=== PATIENT | male | born 1970 | race Caucasian/White ===

== ENCOUNTER 2016-11-07 08:44 | Emergency (ER) | payer OTHER ==
[~2016-11-07] VITALS: Ht 185.4 cm; Wt 104.0 kg
[~2016-11-07 08:44] MED LIST: ALBU0.08 NEB; PRED20 PO; SYMB80AE INH
[2016-11-07 08:53] VITALS: BP 119/86; PULSE 112; RESP 22; TEMP 97.7; O2SAT 91
[2016-11-07] MEDS ORDERED: ADVA100A INH (08:57)
[2016-11-07] MEDS ORDERED: SODIUM CHLORIDE 0.9% FLUSH 5 ML FLUSH IVF PRN (09:00)
[2016-11-07] MEDS ORDERED: methylPREDNISolone SOD SUCC 125 MG/2 ML VIAL IVP ONE (09:00)
[2016-11-07 09:09] VITALS: O2SAT 94
[2016-11-07 09:12] VITALS: O2SAT 92
[2016-11-07] MEDS: RESP: ALBUTEROL 2.5 MG/IPRATROPIUM 0.5 MG NEB (SCH) INH (09:13)
--- NOTE | 2016-11-07 09:14 | PD ---
HPI Chief Complaint: Respiratory Distress Time Seen by Provider: 08:53 Travel History International Travel<30 days: No Contact w/Intl Traveler<30days: No Traveled to known affect area: No History of Present Illness HPI This 46-year-old male is complaining of shortness of breath. He says he been short of breath for the past week and is getting progressively worse. He's been coughing up some yellow brownish phlegm. He has not had fever. He has a history of COPD. He says he has not had a cigarette for the past week. 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 He has been on albuterol and Atrovent recently. He has been on steroids in the past but is not on them currently. He has his first appointment with a graphics production specialist on Tuesday Past Medical History Hx Anticoagulant Therapy: Yes Anxiety: Yes Heart Rhythm Problems: Yes Cancer: No Cardiovascular Problems: Yes (CHRONIC TACHYCARDIA) Congestive Heart Failure: No COPD: Yes Coronary Artery Disease: No Diabetes: No Diminished Hearing: No Diverticulitis: Yes Deep Vein Thrombosis: Yes (PE) Endocrine: No Gastrointestinal Disorders: Yes GERD: Yes Genitourinary: No Implanted Vascular Access Dvce: Yes (FILTER) Musculoskeletal: No Neurologic: No Psychiatric: No Respiratory: Yes Past Surgical History Abdominal Surgery: Yes (LIVER BIOPSY, COLOSTOMY) Body Medical Devices: SUAD FILTER Other Surgery: Yes Social History Alcohol Use: Yes (2-3 BEERS NIGHTLY) Tobacco Use: Yes (1/2PPD) Substance Use: No Allergies-Medications (Allergen,Severity, Reaction): Coded Allergies: No Known Allergies (Unverified , 10/28/16) Reported Meds & Prescriptions Reported Meds & Active Scripts Active Albuterol Neb (Albuterol Sulfate) 2.5 Mg/3 Ml Neb 2.5 Mg NEB Q4HR NEB While awake Reported Advair Diskus Inh (Fluticasone-Salmeterol Inh) 100-50 Mcg/Blist Aer 1 Puff INH BID Rinse mouth after use. Review of Systems General / Constitutional: No: Fever, Chills Eyes: No: Diploplia, Blurred Vision HENT: No: Headaches, Vertigo Cardiovascular: No: Chest Pain or Discomfort Respiratory: Positive: Cough, Shortness of Breath, Wheezing, No: Hemoptysis Gastrointestinal: No: Vomiting, Diarrhea Genitourinary: No: Urgency, Frequency Musculoskeletal: No: Myalgias, Arthralgias Skin: No Rash, No Itching Hematologic/Lymphatic: No: Easy Bruising Physical Exam Narrative GENERAL: Well-developed male. He is dyspneic on arrival SKIN: Warm and dry. HEAD: Atraumatic. Normocephalic. EYES: Pupils equal and round. No scleral icterus. No injection or drainage. ENT: No nasal bleeding or discharge. Mucous membranes pink and moist. NECK: Trachea midline. No JVD. CARDIOVASCULAR: Regular rate and rhythm. No murmur appreciated. RESPIRATORY: accessory muscle use. Bilateral expiratory wheezes are present. Breath sounds equal bilaterally. GASTROINTESTINAL: Abdomen soft, non-tender, nondistended. Hepatic and splenic margins not palpable. MUSCULOSKELETAL: No obvious deformities. No clubbing. No cyanosis. No edema. NEUROLOGICAL: Awake and alert. No obvious cranial nerve deficits. Motor grossly within normal limits. Normal speech. PSYCHIATRIC: Appropriate mood and affect; insight and judgment normal. Data Data Last Documented VS Vital Signs Date Time Temp Pulse Resp B/P Pulse Ox O2 Delivery O2 Flow Rate FiO2 11/07/16 09:45 97.9 112 18 119/79 96 Nasal Cannula 2 Orders Complete Blood Count With Diff (11/07/16 08:53) Basic Metabolic Panel (Bmp) (11/07/16 08:53) Troponin I (11/07/16 08:53) Influenzae A/B Antigen (11/07/16 08:53) Iv Access Insert/Monitor (11/07/16 08:53) Electrocardiogram (11/07/16 08:53) Ecg Monitoring (11/07/16 08:53) Oximetry (11/07/16 08:53) Oxygen Administration (11/07/16 08:53) Chest, Single Ap (11/07/16 08:53) Sodium Chloride 0.9% Flush (Ns Flush) (11/07/16 09:00) Methylprednisolone So Succ Inj (Solumedr (11/07/16 09:00) Albuterol-Ipratropium Neb (Duoneb Neb) (11/07/16 09:00) Labs Laboratory Tests Test 11/07/16 09:03 White Blood Count 15.3 TH/MM3 Red Blood Count 4.85 MIL/MM3 Hemoglobin 14.2 GM/DL Hematocrit 42.6 % Mean Corpuscular Volume 87.8 FL Mean Corpuscular Hemoglobin 29.3 PG Mean Corpuscular Hemoglobin 33.3 % Concent Red Cell Distribution Width 15.2 % Platelet Count 450 TH/MM3 Mean Platelet Volume 7.3 FL Neutrophils (%) (Auto) 65.5 % Lymphocytes (%) (Auto) 17.3 % Monocytes (%) (Auto) 6.9 % Eosinophils (%) (Auto) 6.2 % Basophils (%) (Auto) 4.1 % Neutrophils # (Auto) 10.1 TH/MM3 Lymphocytes # (Auto) 2.6 TH/MM3 Monocytes # (Auto) 1.1 TH/MM3 Eosinophils # (Auto) 0.9 TH/MM3 Basophils # (Auto) 0.6 TH/MM3 CBC Comment DIFF FINAL Differential Comment Sodium Level 143 MEQ/L Potassium Level 4.0 MEQ/L Chloride Level 108 MEQ/L Carbon Dioxide Level 25.0 MEQ/L Anion Gap 10 MEQ/L Blood Urea Nitrogen 16 MG/DL Creatinine 0.89 MG/DL Estimat Glomerular Filtration 91 ML/MIN Rate Random Glucose 87 MG/DL Calcium Level 8.6 MG/DL Troponin I LESS THAN 0.02 NG/ML [facility] Medical Decision Making Medical Screen Exam Complete: Yes Emergency Medical Condition: Yes Medical Record Reviewed: Yes Differential Diagnosis Differential includes pneumonia, COPD exacerbation, URI Narrative Course Chest x-rays been read as negative. He has been given Solu-Medrol and repeated nebulizer treatments. He reports feeling better. Repeat examination shows improvement in his wheezing. He appears stable for discharge. He'll be released with prescriptions for prednisone, albuterol and amoxicillin Diagnosis Primary Impression: COPD with acute exacerbation Scripts Albuterol Neb 2.5 Mg/3 Ml Neb2.5 Mg NEB Q4HR NEB PRN (SHORTNESS OF BREATH) #60 NEBULE Ref 0 Prov:Aki Finley MD 11/07/16 Amoxicillin 500 Mg Agu022 Mg PO TID #21 TAB Ref 0 Prov:Aki Finley MD 11/07/16 Prednisone 20 Mg Tab60 Mg PO DAILY 7 Days Ref 0 40 MG twice a day x 3 days, then 20 MG daily x 3 days, then 10 MG daily x 3 days Prov:Aki Finley MD 11/07/16 Disposition: 01 DISCHARGE HOME Condition: Stable Aki Finley MD Nov 07, 2016 09:14
[2016-11-07 09:16] LABS: AUTOMATED NEUTROPHIL # 10.1 TH/MM3 (1.8-7.7); BASOPHIL # 0.6 TH/MM3 (0-0.2); BASOPHIL % 4.1 % (0.0-2.0); EOSINOPHIL # 0.9 TH/MM3 (0-0.4); EOSINOPHIL % 6.2 % (0.0-4.0); HEMATOCRIT 42.6 % (39.0-51.0); HEMO FLAGS DIFF FINAL; LYMPH % 17.3 % (9.0-44.0); LYMPHOCYTE # 2.6 TH/MM3 (1.0-4.8); MEAN CELL VOLUME 87.8 FL (80.0-100.0); MEAN CORPUSCULAR HEMOGLOBIN 29.3 PG (27.0-34.0); MEAN CORPUSCULAR HGB CONC 33.3 % (32.0-36.0); MONO % 6.9 % (0.0-8.0); NEUT % 65.5 % (16.0-70.0); PLATELET COUNT 450 TH/MM3 (150-450); RED BLOOD COUNT 4.85 MIL/MM3 (4.50-5.90); RED CELL DISTRIBUTION WIDTH 15.2 % (11.6-17.2); WHITE BLOOD COUNT 15.3 TH/MM3 (4.0-11.0)
[2016-11-07 09:45] VITALS: BP 119/79; PULSE 112; RESP 18; TEMP 97.9; O2SAT 96
[2016-11-07 09:48] LABS: GLOMERULAR FILTRATION RATE 91 ML/MIN (>89)
[2016-11-07 09:54] LABS: ANION GAP 10 MEQ/L (5-15); CHLORIDE 108 MEQ/L (98-107); SODIUM (NA) 143 MEQ/L (136-145)
[2016-11-07 09:58] LABS: BLOOD UREA NITROGEN 16 MG/DL (7-18)
--- NOTE | 2016-11-07 10:03 | RADHPO ---
EXAM DATE/TIME: 11/07/2016 09:37 [facility] COMPARISON: CHEST SINGLE AP, September 30, 2016, 12:15. INDICATIONS : Short of breath. MEDICAL HISTORY : Chronic obstructive pulmonary disease. Deep venous thrombosis. SURGICAL HISTORY : IVC filter placement. ENCOUNTER: Subsequent ACUITY: 1 day PAIN SCORE: 1/10 LOCATION: Bilateral chest FINDINGS: A single view of the chest demonstrates the lungs to be symmetrically aerated without evidence of mas s, infiltrate or effusion. The cardiomediastinal contours are unremarkable. Osseous structures are intact. CONCLUSION: No acute disease. Babak Cain MD on November 07, 2016 at 10:02 Board Certified Radiologist. This report was verified electronically.
[2016-11-07] MEDS ORDERED: ALBU0.08 NEB (10:11)
[2016-11-07] MEDS ORDERED: PRED20 PO (10:11)
[2016-11-07] MEDS ORDERED: AMOX500T PO (10:11)
--- NOTE | 2016-11-08 18:34 | EKG ---
Date Performed: 11/07/2016 Time Performed: 08:47:00 PTAGE: 46 years EKG: Sinus tachycardia Septal T wave changes are nonspecific Since previous tracing, no signific ant change noted Borderline ECG PREVIOUS TRACING : 10/14/2016 22.37 DOCTOR: Kelly Mills Interpretating Date/Time 11/08/2016 18:33:32
== END 2016-11-07 10:53 | disposition home or self-care (01) ==
LOC: PHED 08:44
DX: J44.1 Chronic obstructive pulmonary disease with (acute) exacerbation (principal); R00.0 Tachycardia, unspecified; Z86.711 Personal history of pulmonary embolism; F17.210 Nicotine dependence, cigarettes, uncomplicated
CPT/HCPCS: 71010; 80048; 84484; 85025; 87804; 93005; 94640; 94664; 96374; 99285; J2930

== ENCOUNTER 2017-01-03 06:22 | Inpatient (IN) | payer OTHER ==
[2017-01-03] VITALS (9 sets, daily range): BP systolic 115–142; BP diastolic 74–90; PULSE 77–122; RESP 16–26; TEMP 97.7–97.9; O2SAT 88–99
[~2017-01-03] VITALS: Ht 185.4 cm; Wt 106.9 kg
[~2017-01-03 06:22] MED LIST changes: +ADVA100A INH; +AMOX500T PO; -SYMB80AE INH
[2017-01-03] MEDS ORDERED: FLUT1INH INH (06:39)
[2017-01-03] MEDS ORDERED: TIOT12.9 INH ×2 (06:39)
--- NOTE | 2017-01-03 06:41 | PD ---
HPI Chief Complaint: Respiratory Symptoms Time Seen by Provider: 06:34 Travel History International Travel<30 days: No Contact w/Intl Traveler<30days: No Traveled to known affect area: No History of Present Illness HPI 46-year-old male with history of COPD here for evaluation of shortness of breath. Patient started having shortest of breath yesterday, worse this morning. Shortest of breath is at rest, worse with exertion. He reports that he is out of his Spiriva. He reports that he has been having a cough productive of greenish sputum. No hemoptysis. No fevers or chills. No chest pain. No known history of cardiac disease. History of DVT during hospitalization several years ago, and had a [place] filter placed at that time. PFSH Past Medical History Hx Anticoagulant Therapy: Yes Anxiety: Yes Heart Rhythm Problems: Yes Cancer: No Cardiovascular Problems: Yes (CHRONIC TACHYCARDIA) Congestive Heart Failure: No COPD: Yes Coronary Artery Disease: No Diabetes: No Diminished Hearing: No Diverticulitis: Yes Deep Vein Thrombosis: Yes (PE) Endocrine: No Gastrointestinal Disorders: Yes GERD: Yes Genitourinary: No Implanted Vascular Access Dvce: Yes (FILTER) Musculoskeletal: No Neurologic: No Psychiatric: No Respiratory: Yes (COPD) Past Surgical History Abdominal Surgery: Yes (LIVER BIOPSY, COLOSTOMY) Body Medical Devices: SUAD FILTER Other Surgery: Yes Social History Alcohol Use: Yes (2-3 BEERS NIGHTLY) Tobacco Use: Yes (1/2PPD) Substance Use: No Allergies-Medications (Allergen,Severity, Reaction): Coded Allergies: No Known Allergies (Unverified , 01/03/17) Reported Meds & Prescriptions Reported Meds & Active Scripts Active Albuterol Neb (Albuterol Sulfate) 2.5 Mg/3 Ml Neb 2.5 Mg NEB Q4HR NEB While awake Reported Breo Ellipta Inh (Fluticasone/Vilanterol) 100-25 Mcg/Act Inh 1 Puff INH DAILY Use daily at the same time. Spiriva Respimat Inh (Tiotropium Inh) 2.5 Mcg/Act Aero 2 Puff INH BID 2.5 mcg = 1 inhalation Spiriva Respimat Inh (Tiotropium Inh) 2.5 Mcg/Act Aero 2 Puff INH DAILY 2.5 mcg = 1 inhalation Review of Systems Except as stated in HPI: all other systems reviewed are Neg Physical Exam Narrative GENERAL: Well-developed, well-nourished, moderate respiratory distress, speaking a few words at a time, pursed lip breathing SKIN: Warm and dry. No rash. HEAD: Atraumatic. Normocephalic. EYES: Pupils equal and round. No scleral icterus. No injection or drainage. ENT: Mucous membranes pink and dry. NECK: Trachea midline. No JVD. CARDIOVASCULAR: Tachycardic, rate 120, regular. RESPIRATORY: Accessory muscle use. Moderate respiratory distress. Speaking a few words at a time. Pursed lip breathing. Expiratory wheezes bilaterally. Poor air movement bilaterally. GASTROINTESTINAL: Abdomen soft, non-tender, nondistended. Left colostomy with normal stool output. MUSCULOSKELETAL: No obvious deformities. No clubbing. No cyanosis. No edema. No calf tenderness. NEUROLOGICAL: Awake and alert. No obvious cranial nerve deficits. Motor grossly within normal limits. Normal speech. PSYCHIATRIC: Appropriate mood and affect; insight and judgment normal. Data Data Last Documented VS Vital Signs Date Time Temp Pulse Resp B/P Pulse Ox O2 Delivery O2 Flow Rate FiO2 01/03/17 06:46 121 24 91 Room Air 01/03/17 06:32 97.7 142/89 Orders Electrocardiogram (01/03/17 06:37) Complete Blood Count With Diff (01/03/17 06:37) Comprehensive Metabolic Panel (01/03/17 06:37) Prothrombin Time / Inr (Pt) (01/03/17 06:37) Act Partial Throm Time (Ptt) (01/03/17 06:37) Lactic Acid Sepsis Protocol (01/03/17 06:37) Ckmb (Isoenzyme) Profile (01/03/17 06:37) Troponin I (01/03/17 06:37) Blood Culture (01/03/17 06:37) Chest, Single Ap (01/03/17 06:37) Arterial Blood Gas (Abg) (01/03/17 06:37) Blood Glucose (01/03/17 06:37) Ecg Monitoring (01/03/17 06:37) Iv Access Insert/Monitor (01/03/17 06:37) Oximetry (01/03/17 06:37) Oxygen Administration (01/03/17 06:37) Methylprednisolone So Succ Inj (Solumedr (01/03/17 06:45) Albuterol-Ipratropium Neb (Duoneb Neb) (01/03/17 06:45) Influenzae A/B Antigen (01/03/17 06:37) Sodium Chlor 0.9% 1000 Ml Inj (Ns 1000 M (01/03/17 06:45) MDM Medical Decision Making Medical Screen Exam Complete: Yes Emergency Medical Condition: Yes Medical Record Reviewed: Yes Differential Diagnosis COPD exacerbation, sepsis, pneumonia, pneumothorax, PE, ACS Narrative Course At approximately 7:00 AM at the end of my shift the patient was signed out to Dr. Talley who will follow up with labs, imaging results, reassess the patient, and form a disposition. Fawad Solorzano MD Jan 03, 2017 06:41
[2017-01-03] MEDS ORDERED: SODIUM CHLOR 0.9% 1000 ML INJ 1,000 ML IV ONE (06:45)
[2017-01-03] MEDS ORDERED: methylPREDNISolone SOD SUCC 125 MG/2 ML VIAL IVP ONE (06:45)
[2017-01-03] MEDS: RESP: ALBUTEROL 2.5 MG/IPRATROPIUM 0.5 MG NEB (SCH) INH (06:47)
[2017-01-03 07:00] LABS: BLOOD GAS BASE EXCESS 0.3 mmol/L (-2-2); BLOOD GAS CARBOXYHEMOGLOBIN 1.9 % (0-4); BLOOD GAS HCO3 24 mmol/L (22-26); BLOOD GAS METHEMOGLOBIN 1.1 % (0-2); BLOOD GAS O2 HGB SATURATION 88 % (90-100); BLOOD GAS OXYGEN CONTENT 18.6 Vol % (12.0-20.0); BLOOD GAS PCO2 38 mmHG (38-42); BLOOD GAS PO2 59 mmHG (61-120); BLOOD GAS TOTAL HGB 15.1 G/DL (12.0-16.0); TEMP CORR TO 98.6
[2017-01-03 07:01] LABS: CRITICAL VALUE YES; FIO2 21 %; OXYGEN DEVICE ROOM AIR
[2017-01-03 07:02] LABS: DRAW SITE RT BRACHIAL; NUMBER OF ARTERIAL PUNCTURES 2; STAT YES; ULNAR PULSE Y
[2017-01-03 07:13] LABS: AUTOMATED NEUTROPHIL # 8.2 TH/MM3 (1.8-7.7); BASOPHIL # 0.1 TH/MM3 (0-0.2); BASOPHIL % 0.8 % (0.0-2.0); EOSINOPHIL # 0.8 TH/MM3 (0-0.4); EOSINOPHIL % 6.5 % (0.0-4.0); HEMO FLAGS DIFF FINAL; LYMPH % 16.9 % (9.0-44.0); LYMPHOCYTE # 2.1 TH/MM3 (1.0-4.8); MEAN CELL VOLUME 87.7 FL (80.0-100.0); MEAN CORPUSCULAR HEMOGLOBIN 28.5 PG (27.0-34.0); MEAN CORPUSCULAR HGB CONC 32.5 % (32.0-36.0); MONO % 9.5 % (0.0-8.0); NEUT % 66.3 % (16.0-70.0); PLATELET COUNT 498 TH/MM3 (150-450); RED BLOOD COUNT 5.24 MIL/MM3 (4.50-5.90); RED CELL DISTRIBUTION WIDTH 13.4 % (11.6-17.2); WHITE BLOOD COUNT 12.4 TH/MM3 (4.0-11.0)
[2017-01-03 07:21] LABS: CHLORIDE 108 MEQ/L (98-107); SODIUM (NA) 141 MEQ/L (136-145)
[2017-01-03 07:23] LABS: ANION GAP 6 MEQ/L (5-15); BICARBONATE 26.7 MEQ/L (21.0-32.0); BLOOD UREA NITROGEN 18 MG/DL (7-18)
[2017-01-03 07:25] LABS: PROTHROMBIN TIME - PATIENT 10.7 SEC (9.8-11.6)
[2017-01-03 07:27] LABS: ALT (GPT) 143 U/L (12-78)
[2017-01-03 07:28] LABS: AST (GOT) 90 U/L (15-37); GLOMERULAR FILTRATION RATE 108 ML/MIN (>89)
[2017-01-03 07:29] LABS: TOTAL BILIRUBIN ADULT 0.4 MG/DL (0.2-1.0)
[2017-01-03 07:30] LABS: ALKALINE PHOSPHATASE 112 U/L (45-117); CREATINE KINASE 111 U/L (39-308)
[2017-01-03 07:42] LABS: CKMB 1.1 NG/ML (0.5-3.6)
--- NOTE | 2017-01-03 08:11 | RADHPO ---
EXAM DATE/TIME: 01/03/2017 07:11 [facility] COMPARISON: CT PULMONARY ANGIOGRAM, October 14, 2016, 23:22. CHEST SINGLE AP, August 09, 2016, 3:08. CHEST SI NGLE AP, August 24, 2016, 19:34. CHEST SINGLE AP, November 07, 2016, 9:37. INDICATIONS: Short of breath. MEDICAL HISTORY: Chronic obstructive pulmonary disease. SURGICAL HISTORY: None. ENCOUNTER: Initial ACUITY: 2 days PAIN SCORE: 0/10 LOCATION: Bilateral chest FINDINGS: Minimal bibasilar atelectasis and/or congestions is noted. The heart is normal. No focal alveolar c onsolidation is noted. CONCLUSION: 1. Minimal bibasilar atelectasis and/or congestion. Clinical correlation is recommended. Richie Moreau MD on January 03, 2017 at 7:24 Board Certified Radiologist. This report was verified electronically.
[2017-01-03] MEDS ORDERED: PRED20 PO (08:28)
[2017-01-03] MEDS ORDERED: AZIT250T3 PO (08:28)
--- NOTE | 2017-01-03 08:28 | PD ---
Data Data Last Documented VS Vital Signs Date Time Temp Pulse Resp B/P Pulse Ox O2 Delivery O2 Flow Rate FiO2 01/03/17 07:31 95 Nasal Cannula 2 01/03/17 07:08 97.7 114 16 131/85 Orders Electrocardiogram (01/03/17 06:37) Complete Blood Count With Diff (01/03/17 06:37) Comprehensive Metabolic Panel (01/03/17 06:37) Prothrombin Time / Inr (Pt) (01/03/17 06:37) Act Partial Throm Time (Ptt) (01/03/17 06:37) Lactic Acid Sepsis Protocol (01/03/17 06:37) Ckmb (Isoenzyme) Profile (01/03/17 06:37) Troponin I (01/03/17 06:37) Blood Culture (01/03/17 06:37) Chest, Single Ap (01/03/17 06:37) Arterial Blood Gas (Abg) (01/03/17 06:37) Blood Glucose (01/03/17 06:37) Ecg Monitoring (01/03/17 06:37) Iv Access Insert/Monitor (01/03/17 06:37) Oximetry (01/03/17 06:37) Oxygen Administration (01/03/17 06:37) Methylprednisolone So Succ Inj (Solumedr (01/03/17 06:45) Albuterol-Ipratropium Neb (Duoneb Neb) (01/03/17 06:45) Influenzae A/B Antigen (01/03/17 06:37) Sodium Chlor 0.9% 1000 Ml Inj (Ns 1000 M (01/03/17 06:45) CKMB (01/03/17 07:00) CKMB% (01/03/17 07:00) Labs Laboratory Tests Test 01/03/17 01/03/17 01/03/17 06:55 06:59 07:00 Blood Gas Puncture Site RT BRACHIAL Blood Gas Patient Temperature 98.6 Blood Gas HCO3 24 mmol/L Blood Gas Base Excess 0.3 mmol/L Blood Gas Oxygen Saturation 88 % Arterial Blood pH 7.42 Arterial Blood Partial 38 mmHG Pressure CO2 Arterial Blood Partial 59 mmHG Pressure O2 Arterial Blood Oxygen Content 18.6 Vol % Arterial Blood 1.9 % Carboxyhemoglobin Arterial Blood Methemoglobin 1.1 % Blood Gas Hemoglobin 15.1 G/DL Oxygen Delivery Device ROOM AIR Blood Gas Inspired Oxygen 21 % Lactic Acid Level 1.3 mmol/L White Blood Count 12.4 TH/MM3 Red Blood Count 5.24 MIL/MM3 Hemoglobin 15.0 GM/DL Hematocrit 46.0 % Mean Corpuscular Volume 87.7 FL Mean Corpuscular Hemoglobin 28.5 PG Mean Corpuscular Hemoglobin 32.5 % Concent Red Cell Distribution Width 13.4 % Platelet Count 498 TH/MM3 Mean Platelet Volume 7.0 FL Neutrophils (%) (Auto) 66.3 % Lymphocytes (%) (Auto) 16.9 % Monocytes (%) (Auto) 9.5 % Eosinophils (%) (Auto) 6.5 % Basophils (%) (Auto) 0.8 % Neutrophils # (Auto) 8.2 TH/MM3 Lymphocytes # (Auto) 2.1 TH/MM3 Monocytes # (Auto) 1.2 TH/MM3 Eosinophils # (Auto) 0.8 TH/MM3 Basophils # (Auto) 0.1 TH/MM3 CBC Comment DIFF FINAL Differential Comment Prothrombin Time 10.7 SEC Prothromb Time International 1.0 RATIO Ratio Activated Partial 31.0 SEC Thromboplast Time Sodium Level 141 MEQ/L Potassium Level 5.0 MEQ/L Chloride Level 108 MEQ/L Carbon Dioxide Level 26.7 MEQ/L Anion Gap 6 MEQ/L Blood Urea Nitrogen 18 MG/DL Creatinine 0.77 MG/DL Estimat Glomerular Filtration 108 ML/MIN Rate Random Glucose 102 MG/DL Calcium Level 8.4 MG/DL Total Bilirubin 0.4 MG/DL Aspartate Amino Transf 90 U/L (AST/SGOT) Alanine Aminotransferase 143 U/L (ALT/SGPT) Alkaline Phosphatase 112 U/L Total Creatine Kinase 111 U/L Creatine Kinase MB 1.1 NG/ML Troponin I LESS THAN 0.02 NG/ML Total Protein 7.5 GM/DL Albumin 3.2 GM/DL [facility] Supervised Visit with JORGE: No Narrative Course This is a 46-year-old male who I am caring for subsequently after Dr. Solorzano's assessment who presents to the emergency department with shortness of breath. The patient has a history of COPD. He feels much better after serial bronchodilator treatments and steroids. Labs are obtained which were reassuring and a chest x-ray was unremarkable. Patient will be discharged with prednisone and antibiotic therapy. Diagnosis Primary Impression: COPD with acute exacerbation Patient Instructions: General Instructions Additional Instruction: If you develop severe shortness of breath, chest pain, or difficulty breathing return to the emergency department. Use albuterol every 4 hours for the next 2 days. Then use as needed for wheezing. Complete your course of steroids. Complete your course of antibiotics. Follow up with your primary care physician in 2-3 days if your symptoms have not improved. Med/Other Pt SpecificInfo: Prescription(s) given Scripts Azithromycin 250 Mg [id number] Mg PO DIRECTED #6 TAB Take 2 tabs (500 mg) on day 1 then 1 tab daily x 4 days. Prov:Leidy Talley MD 01/03/17 Prednisone 20 Mg Tab40 Mg PO DAILY 4 Days Prov:Leidy Talley MD 01/03/17 Disposition: 01 DISCHARGE HOME Condition: Stable Leidy Talley MD Jan 03, 2017 08:28
[2017-01-03] MEDS ORDERED: SODIUM CHLORIDE 0.9% FLUSH 5 ML FLUSH FLUSH PRN (10:15)
[2017-01-03] MEDS: RESP: ALBUTEROL 2.5 MG/IPRATROPIUM 0.5 MG NEB (SCH) NEB ×2 (13:30→19:46)
[2017-01-03] MEDS ORDERED: RESP: ALBUTEROL 2.5 MG/IPRATROPIUM 0.5 MG NEB (PRN) NEB ×2 (13:30→14:00)
--- NOTE | 2017-01-03 13:38 | EKG ---
Date Performed: 01/03/2017 Time Performed: 07:17:06 PTAGE: 46 years EKG: Sinus tachycardia Normal ECG except for rate Compared to prior tracing no significant don leavitt PREVIOUS TRACING : 11/07/2016 08.47 DOCTOR: Gideon Martinez Interpretating Date/Time 01/03/2017 13:37:23
[2017-01-03] MEDS ORDERED: RESP: ALBUTEROL 2.5 MG/IPRATROPIUM 0.5 MG NEB (SCH) NEB (14:00)
--- NOTE | 2017-01-03 14:02 | HHI.HP ---
[facility] No Primary Care Physician Admission Diagnosis copd exacerbation, hypoxia Diagnoses: Chief Complaint: Shortness of breath. Travel History International Travel<30 Days: No Contact w/Intl Traveler <30 Da: No Traveled to Known Affected Are: No History of Present Illness This patient is a 46-year-old gentleman with previous diagnosis of COPD was evaluated in the emergency room for increased work of breathing and shortness of breath. Patient was hypoxemic on arrival at 88%. This improved with bronchodilators however the patient was not able to maintain his saturations. Patient upon ambulation continued to be hypoxemic. He is recommended for further inpatient evaluation due to this. Patient has no fevers or chills. He does however admit a productive cough over the last several days. He continues to smoke. He did run out of his medications Spiriva and breo in the the last 2 weeks. He has tried using his nebulizer at home without relief. Review of Systems Constitutional: DENIES: Diaphoretic episodes, Fatigue, Fever, Weight gain, Weight loss, Chills, Dizziness, Change in appetite, Night Sweats Endocrine: DENIES: Heat/cold intolerance, Polydipsia, Polyuria, Polyphagia Eyes: DENIES: Blurred vision, Diplopia, Eye inflammation, Eye pain, Vision loss , Photosensitivity, Double Vision Ears, nose, mouth, throat: DENIES: Tinnitus, Hearing loss, Vertigo, Nasal discharge, Oral lesions, Throat pain, Hoarseness, Ear Pain, Running Nose, Epistaxis, Sinus Pain, Toothache, Odynophagia Respiratory: COMPLAINS OF: Wheezing, Shortness of breath, DENIES: Apneas, Cough, Snoring, Hemoptysis, Sputum production Cardiovascular: COMPLAINS OF: Dyspnea on Exertion, DENIES: Chest pain, Palpitations, Syncope, PND, Lower Extremity Edema, Orthopnea, Claudication Gastrointestinal: DENIES: Abdominal pain, Black stools, Bloody stools, Constipation, Diarrhea, Nausea, Vomiting, Difficulty Swallowing, Anorexia Genitourinary: DENIES: Sexual dysfunction, Urinary frequency, Urinary incontinence, Urgency, Hematuria, Dysuria, Nocturia, Penile Discharge, Testicular Pain, Testicular Swelling Musculoskeletal: DENIES: Joint pain, Muscle aches, Stiffness, Joint Swelling, Back pain, Neck pain Integumentary: DENIES: Abnormal pigmentation, Nail changes, Pruritus, Rash Hematologic/lymphatic: DENIES: Bruising, Lymphadenopathy Immunologic/allergic: DENIES: Eczema, Urticaria Neurologic: DENIES: Abnormal gait, Headache, Localized weakness, Paresthesias, Seizures, Speech Problems, Tremor, Poor Balance Psychiatric: DENIES: Anxiety, Confusion, Mood changes, Depression, Hallucinations, Agitation, Suicidal Ideation, Homicidal Ideation, Delusions Past Family Social History Past Medical History COPD Tobacco dependency diverticulitis Pulmonary embolism Past Surgical History Liver biopsy, colostomy due to severe diverticular disease Madeline filter Reported Medications Reviewed in the medical record Allergies: Coded Allergies: No Known Allergies (Unverified , 01/03/17) Active Ordered Medications Reviewed in the medical record Family History Mother is healthy, father is not biological Social History No alcohol dependency, is employed, smokes at least 2 packs a day for the last 35 years Physical Exam Vital Signs Vital Signs Date Time Temp Pulse Resp B/P Pulse Ox O2 Delivery O2 Flow Rate FiO2 01/03/17 12:00 97.9 77 19 129/75 95 01/03/17 09:40 95 2 01/03/17 08:41 116 18 131/74 91 01/03/17 07:31 95 Nasal Cannula 2 01/03/17 07:30 98 Nasal Cannula 2 01/03/17 07:08 97.7 114 16 131/85 98 Room Air 01/03/17 07:07 97.7 114 16 131/85 98 Room Air 01/03/17 07:06 16 98 Room Air 01/03/17 06:46 121 24 91 Room Air 01/03/17 06:32 97.7 122 26 142/89 88 Physical Exam GENERAL: This is a well-nourished, well-developed patient, in no apparent distress. SKIN: No rashes, ecchymoses or lesions. Cool and dry. HEAD: Atraumatic. Normocephalic. No temporal or scalp tenderness. EYES: Pupils equal round and reactive. Extraocular motions intact. No scleral icterus. No injection or drainage. ENT: Nose without bleeding, purulent drainage or septal hematoma. Throat without erythema, tonsillar hypertrophy or exudate. Uvula midline. Airway patent. NECK: Trachea midline. No JVD or lymphadenopathy. Supple, nontender, no meningeal signs. CARDIOVASCULAR: Regular rate and rhythm without murmurs, gallops, or rubs. RESPIRATORY: Clear to auscultation. Breath sounds equal bilaterally. No wheezes , rales, or rhonchi. GASTROINTESTINAL: Abdomen soft, non-tender, nondistended. No hepato-splenomegaly , or palpable masses. No guarding. MUSCULOSKELETAL: Extremities without clubbing, cyanosis, or edema. No joint tenderness, effusion, or edema noted. No calf tenderness. Negative Homans sign bilaterally. NEUROLOGICAL: Awake and alert. Cranial nerves II through XII intact. Motor and sensory grossly within normal limits. Five out of 5 muscle strength in all muscle groups. Normal speech. Laboratory Laboratory Tests Test 01/03/17 01/03/17 01/03/17 06:55 06:59 07:00 Blood Gas Puncture Site RT BRACHIAL Blood Gas Patient Temperature 98.6 Blood Gas HCO3 24 Blood Gas Base Excess 0.3 Blood Gas Oxygen Saturation 88 Arterial Blood pH 7.42 Arterial Blood Partial 38 Pressure CO2 Arterial Blood Partial 59 Pressure O2 Arterial Blood Oxygen Content 18.6 Arterial Blood 1.9 Carboxyhemoglobin Arterial Blood Methemoglobin 1.1 Blood Gas Hemoglobin 15.1 Oxygen Delivery Device ROOM AIR Blood Gas Inspired Oxygen 21 Lactic Acid Level 1.3 White Blood Count 12.4 Red Blood Count 5.24 Hemoglobin 15.0 Hematocrit 46.0 Mean Corpuscular Volume 87.7 Mean Corpuscular Hemoglobin 28.5 Mean Corpuscular Hemoglobin 32.5 Concent Red Cell Distribution Width 13.4 Platelet Count 498 Mean Platelet Volume 7.0 Neutrophils (%) (Auto) 66.3 Lymphocytes (%) (Auto) 16.9 Monocytes (%) (Auto) 9.5 Eosinophils (%) (Auto) 6.5 Basophils (%) (Auto) 0.8 Neutrophils # (Auto) 8.2 Lymphocytes # (Auto) 2.1 Monocytes # (Auto) 1.2 Eosinophils # (Auto) 0.8 Basophils # (Auto) 0.1 CBC Comment DIFF FINAL Differential Comment Prothrombin Time 10.7 Prothromb Time International 1.0 Ratio Activated Partial 31.0 Thromboplast Time Sodium Level 141 Potassium Level 5.0 Chloride Level 108 Carbon Dioxide Level 26.7 Anion Gap 6 Blood Urea Nitrogen 18 Creatinine 0.77 Estimat Glomerular Filtration 108 Rate Random Glucose 102 Calcium Level 8.4 Total Bilirubin 0.4 Aspartate Amino Transf 90 (AST/SGOT) Alanine Aminotransferase 143 (ALT/SGPT) Alkaline Phosphatase 112 Total Creatine Kinase 111 Creatine Kinase MB 1.1 Troponin I LESS THAN 0.02 Total Protein 7.5 Albumin 3.2 Date/Time Procedure Status Source Growth 01/03/17 07:16 Aerobic Blood Culture Received Blood Peripheral Pending 01/03/17 07:16 Anaerobic Blood Culture Received Blood Peripheral Pending 01/03/17 07:00 Influenza Types A,B Antigen (BARBIE) - Final Complete Nasal Washing NEGATIVE FOR FLU A AND B ANTIGEN.... Result Diagram: 01/03/1769901/03/17699 Imaging Last Impressions Chest X-Ray 01/03/17636 Signed Impressions: Service Date/Time: Tuesday, January 03, 2017 07:11 - CONCLUSION: 1. Minimal bibasilar atelectasis and/or congestion. Clinical correlation is recommended. Richie Moreau MD Assessment and Plan Problem List: (1) COPD with acute exacerbation ICD Code: J44.1 Status: Acute Plan: Continue with nebulizer bronchodilators, IV steroids, pulmonary toilet Patient is advised to discontinue tobacco Follow for oxygenation as this patient was quite hypoxemic on arrival 88% Assessment and Plan Plan of care to determine by Hospital course Code Status Full code Discussed Condition With Patient, [facility] Physician Certification 2 Midnight Certification Type: Admission for Inpatient Services Order for Inpatient Services The services are ordered in accordance with Medicare regulations or non- Medicare payer requirements, as applicable. In the case of services not specified as inpatient-only, they are appropriately provided as inpatient services in accordance with the 2-midnight benchmark. Estimated LOS (days): 3 3 days is the estimated time the patient will need to remain in the hospital, assuming treatment plan goals are met and no additional complications. Post-Hospital Plan: Galina Warner MD Jan 03, 2017 14:02
[2017-01-03] MEDS ORDERED: ENOXAPARIN SODIUM 40 MG/0.4 ML SYRINGE SQ SCH (15:00)
[2017-01-03] MEDS: TIOTROPIUM BROMIDE 18 MCG INH INH SCH (17:16)
[2017-01-03] MEDS: SODIUM CHLORIDE 0.9% FLUSH 5 ML FLUSH FLUSH SCH (21:00)
[2017-01-03] MEDS: methylPREDNISolone SOD SUCC 125 MG/2 ML VIAL IV PUSH SCH (21:37)
[2017-01-04] VITALS: BP 145/84; PULSE 114; RESP 16; TEMP 96.2; O2SAT 94
[2017-01-04] MEDS: RESP: ALBUTEROL 2.5 MG/IPRATROPIUM 0.5 MG NEB (SCH) NEB (07:33)
[2017-01-04 07:36] VITALS: O2SAT 93
[2017-01-04 08:00] VITALS: BP 121/77; PULSE 117; RESP 18; O2SAT 93
[2017-01-04] MEDS: SODIUM CHLORIDE 0.9% FLUSH 5 ML FLUSH FLUSH SCH (09:12)
[2017-01-04] MEDS: methylPREDNISolone SOD SUCC 125 MG/2 ML VIAL IV PUSH SCH (09:13)
[2017-01-04] MEDS: TIOTROPIUM BROMIDE 18 MCG INH INH SCH (09:14)
[2017-01-04] MEDS ORDERED: FLUT1INH INH (10:13)
[2017-01-04] MEDS ORDERED: ALBU0.08 NEB (10:13)
[2017-01-04] MEDS ORDERED: TIOT12.9 INH (10:13)
[2017-01-04] MEDS ORDERED: PRED5PAK PO (10:13)
--- NOTE | 2017-01-04 10:13 | HHI.DCPOC ---
Discharge Care Plan Diagnosis: (1) COPD with acute exacerbation Goals to Promote Your Health * To prevent worsening of your condition and complications * To maintain your health at the optimal level Directions to Meet Your Goals Take your medications as prescribed Follow your dietary instruction Follow activity as directed Keep your appointments as scheduled Take your immunizations and boosters as scheduled If your symptoms worsen call your PCP, if no PCP go to Urgent Care Center or Emergency Room Smoking is Dangerous to Your Health. Avoid second hand smoke Call the 24-hour hour crisis hotline for domestic abuse at Galina Meehan MD Jan 04, 2017 10:13
--- NOTE | 2017-01-04 10:15 | HHI.DS ---
Discharge Summary Admission Date Jan 03, 2017 at 08:59 Discharge Date: Jan 04, 2017 Admitting Diagnosis copd exacerbation, hypoxia (1) COPD with acute exacerbation ICD Code: J44.1 Diagnosis: Principal Procedures none Brief History - From Admission This patient is a 46-year-old gentleman with previous diagnosis of COPD was evaluated in the emergency room for increased work of breathing and shortness of breath. Patient was hypoxemic on arrival at 88%. This improved with bronchodilators however the patient was not able to maintain his saturations. Patient upon ambulation continued to be hypoxemic. He is recommended for further inpatient evaluation due to this. Patient has no fevers or chills. He does however admit a productive cough over the last several days. He continues to smoke. He did run out of his medications Spiriva and breo in the the last 2 weeks. He has tried using his nebulizer at home without relief. CBC/BMP: 01/03/17 0700 01/03/17 0700 Significant Findings Laboratory Tests Test 01/03/17 01/03/17 06:55 07:00 Blood Gas Oxygen Saturation 88 % (90-100) Arterial Blood Partial 59 mmHG Pressure O2 (61-120) White Blood Count 12.4 TH/MM3 (4.0-11.0) Platelet Count 498 TH/MM3 (150-450) Monocytes (%) (Auto) 9.5 % (0.0-8.0) Eosinophils (%) (Auto) 6.5 % (0.0-4.0) Neutrophils # (Auto) 8.2 TH/MM3 (1.8-7.7) Monocytes # (Auto) 1.2 TH/MM3 (0-0.9) Eosinophils # (Auto) 0.8 TH/MM3 (0-0.4) Activated Partial 31.0 SEC Thromboplast Time (24.3-30.1) Chloride Level 108 MEQ/L (98-107) Calcium Level 8.4 MG/DL (8.5-10.1) Aspartate Amino Transf 90 U/L (15-37) (AST/SGOT) Alanine Aminotransferase 143 U/L (12-78) (ALT/SGPT) Troponin I LESS THAN 0.02 NG/ML (0.02-0.05) Albumin 3.2 GM/DL (3.4-5.0) Imaging Last Impressions Chest X-Ray 01/03/17 0637 Signed Impressions: Service Date/Time: Tuesday, January 03, 2017 07:11 - CONCLUSION: 1. Minimal bibasilar atelectasis and/or congestion. Clinical correlation is recommended. Richie Moreau MD PE at Discharge GENERAL: This is a well-nourished, well-developed patient, in no apparent distress. CARDIOVASCULAR: Regular rate and rhythm without murmurs, gallops, or rubs. RESPIRATORY: Clear to auscultation. Breath sounds equal bilaterally. No wheezes , rales, or rhonchi. GASTROINTESTINAL: Abdomen soft, non-tender, nondistended. Normal active bowel sounds MUSCULOSKELETAL: Extremities without clubbing, cyanosis, or edema. NEURO: Alert & Oriented x4 to person, place, time, situation. Moves all ext x4 Pt update on day of discharge Patient seen today in follow-up for hypoxemia secondary to COPD exacerbation. Patient is practicing improved and no longer hypoxemic. Patient education was provided on continuing these medications. Prescription refills are provided. Hospital Course Patient is a 46-year-old gentleman with a history of COPD who came in hypoxemic. The patient had run out of his medications and required quite a bit of nebulizers and steroids while he was here. Patient did dramatically improve overnight and was restarted on his home medications. Pt Condition on Discharge: Good Discharge Disposition: Discharge Home Discharge Time: > 30 minutes Discharge Instructions DIET: Follow Instructions for: As Tolerated, No Restrictions Activities you can perform: Regular-No Restrictions New Medications: Prednisone (21) 5 mg tab Dose Pack (Prednisone (21) 5 mg tab Dose Pack) 5 Mg Dspk 5 MG PO DIRECTED Inflammation #1 Ref 0 DSPK Continued Medications: Albuterol Neb (Albuterol Neb) 2.5 Mg/3 Ml Neb 2.5 MG NEB Q4HR NEB While awake Breathing Treatment #60 Ref 0 NEBULE (This prescription has been renewed) Fluticasone-Vilanterol Inh (Breo Ellipta Inh) 100-25 Mcg/Act Inh 1 PUFF INH DAILY Use daily at the same time. copd #1 Ref 3 INHALER (This prescription has been renewed) Tiotropium Inh (Spiriva Respimat Inh) 2.5 Mcg/Act Aero 2 PUFF INH DAILY 2.5 mcg = 1 inhalation COPD #1 Ref 3 INHALER (This prescription has been renewed) Galina Meehan MD Jan 04, 2017 10:15
== END 2017-01-04 10:49 | disposition home or self-care (01) | DRG 192 ==
LOC: PHED 06:22 → PHEDA 08:59 → PH3B 09:46
PROVIDERS: ADMIT Hospitalist; ATTEND Hospitalist
DX: J44.1 Chronic obstructive pulmonary disease with (acute) exacerbation (principal); F41.9 Anxiety disorder, unspecified; F17.210 Nicotine dependence, cigarettes, uncomplicated
CPT/HCPCS: 36600; 71010; 80053; 82550; 82552; 82805; 83605; 84484; 85025; 85610; 85730; 87040; 87804; 93005; 94640; 94664; 96361; 96374; J1650; J2930; J7030

== ENCOUNTER 2017-01-26 21:01 | Emergency (ER) | payer OTHER ==
[~2017-01-26] VITALS: Ht 185.4 cm; Wt 100.0 kg
[~2017-01-26 21:01] MED LIST changes: -ADVA100A INH; -AMOX500T PO; +FLUT1INH INH; -PRED20 PO; +PRED5PAK PO; +TIOT12.9 INH
[2017-01-26 21:11] VITALS: BP 137/92; PULSE 118; RESP 22; TEMP 100.2; O2SAT 93
[2017-01-26] MEDS ORDERED: SODIUM CHLOR 0.9% 1000 ML INJ 1,000 ML IV SCH (21:15)
[2017-01-26] MEDS ORDERED: SODIUM CHLORIDE 0.9% FLUSH 10 ML FLUSH IVF PRN (21:15)
--- NOTE | 2017-01-26 21:28 | PD ---
HPI Chief Complaint: Chest Pain Time Seen by Provider: 21:14 Travel History International Travel<30 days: No Contact w/Intl Traveler<30days: No Traveled to known affect area: No History of Present Illness HPI 46-year-old male presents to the emergency department by private transportation for complaint of increased heart rate shortness of breath and right sided upper chest pain with movement and with breathing. Patient states symptoms have been present since yesterday and progressive worsening. Patient denies any injury or fall. Patient denies any referred pain. Patient does have COPD. Patient denies any retrosternal left-sided chest pain. Patient denies any referred neck jaw back shoulder or arm pain. Patient denies any right upper extremity associated pain swelling or paresthesias. Patient's had no recent febrile illness. Patient has had personal history of DVT summer 2015, had a "filter" placed, and was taken off of Xarelto "a few months ago". No report of long distance travel surgical procedure or protracted illness/bedrest. PFSH Past Medical History Narrative Medical DVT, COPD, chronic tachycardia, diverticulitis with perforation, partial colectomy, colostomy, tobacco use marijuana use; nursing notes reviewed Hx Anticoagulant Therapy: Yes Anxiety: Yes Heart Rhythm Problems: Yes Cancer: No Cardiovascular Problems: Yes (CHRONIC TACHYCARDIA) Congestive Heart Failure: No COPD: Yes Coronary Artery Disease: No Diabetes: No Diminished Hearing: No Diverticulitis: Yes Deep Vein Thrombosis: Yes (PE-FILTER UPPER LEG ) Endocrine: No Gastrointestinal Disorders: Yes GERD: Yes Genitourinary: No Implanted Vascular Access Dvce: Yes (FILTER) Musculoskeletal: No Neurologic: No Psychiatric: No Respiratory: Yes (COPD) Past Surgical History Abdominal Surgery: Yes (LIVER BIOPSY, COLOSTOMY) Body Medical Devices: SUAD FILTER Other Surgery: Yes Social History Alcohol Use: Yes (OCCASIONAL ON WEEEKND ) Tobacco Use: Yes (2 PACKS A WEEK ) Substance Use: No Allergies-Medications (Allergen,Severity, Reaction): Coded Allergies: No Known Allergies (Unverified , 01/26/17) Reported Meds & Prescriptions Reported Meds & Active Scripts Active Breo Ellipta Inh (Fluticasone/Vilanterol) 100-25 Mcg/Act Inh 1 Puff INH DAILY Use daily at the same time. Spiriva Respimat Inh (Tiotropium Inh) 2.5 Mcg/Act Aero 2 Puff INH DAILY 2.5 mcg = 1 inhalation Albuterol Neb (Albuterol Sulfate) 2.5 Mg/3 Ml Neb 2.5 Mg NEB Q4HR NEB While awake Review of Systems Except as stated in HPI: all other systems reviewed are Neg General / Constitutional: No: Fever, Chills HENT: No: Congestion Cardiovascular: Positive: Chest Pain or Discomfort Respiratory: Positive: Shortness of Breath Gastrointestinal: No: Abdominal Pain Genitourinary: No: Dysuria Musculoskeletal: No: Myalgias Skin: No Rash Psychiatric: Positive: Anxiety Endocrine: No: Heat Intolerance Hematologic/Lymphatic: No: Easy Bruising Physical Exam Narrative GENERAL: Well-developed well-nourished male in mild respiratory distress with room air O2 saturation 92% no accessory muscle use and monitored sinus tachycardia rate 117. SKIN: Warm and dry. HEAD: Normocephalic. EYES: No scleral icterus. No injection or drainage. NECK: Supple, trachea midline. No JVD or lymphadenopathy. CARDIOVASCULAR: Increased Regular rate and rhythm without murmurs, gallops, or rubs. RESPIRATORY: Breath sounds equal bilaterally diminished in all peña. No accessory muscle use. GASTROINTESTINAL: Abdomen soft, non-tender, nondistended. MUSCULOSKELETAL: No cyanosis, or edema. Radial and dorsalis pedis pulses 2+ to palpation. BACK: Nontender without obvious deformity. No CVA tenderness. Data Data Last Documented VS Vital Signs Date Time Temp Pulse Resp B/P Pulse Ox O2 Delivery O2 Flow Rate FiO2 01/26/17 23:59 98.7 106 22 93 Room Air 01/26/17 23:05 155/89 1 Orders Chest, Single Ap (01/26/17 ) Complete Blood Count With Diff (01/26/17 21:14) Basic Metabolic Panel (Bmp) (01/26/17 21:14) D-Dimer (01/26/17 21:14) Act Partial Throm Time (Ptt) (01/26/17 21:14) Prothrombin Time / Inr (Pt) (01/26/17 21:14) Magnesium (Mg) (01/26/17 21:14) Troponin I (01/26/17 21:14) Iv Access Insert/Monitor (01/26/17 21:14) Electrocardiogram (01/26/17 21:14) Ecg Monitoring (01/26/17 21:14) Oximetry (01/26/17 21:14) Oxygen Administration (01/26/17 21:14) Sodium Chloride 0.9% Flush (Ns Flush) (01/26/17 21:15) Sodium Chlor 0.9% 1000 Ml Inj (Ns 1000 M (01/26/17 21:15) Blood Culture (01/26/17 21:28) Lactic Acid Sepsis Protocol (01/26/17 21:28) Ceftriaxone Inj (Rocephin Inj) (01/26/17 21:30) Acetaminophen (Tylenol) (01/26/17 21:30) Methylprednisolone So Succ Inj (Solumedr (01/26/17 21:45) Albuterol-Ipratropium Neb (Duoneb Neb) (01/26/17 21:45) Pantoprazole Inj (Protonix Inj) (01/26/17 21:45) Morphine Inj (Morphine Inj) (01/26/17 21:45) Ondansetron Inj (Zofran Inj) (01/26/17 21:45) Ct Pulmonary Angiogram (01/26/17 ) Sodium Chlorid 0.9% 500 Ml Inj (Ns 500 M (01/26/17 22:45) Iohexol 350 Inj (Omnipaque 350 Inj) (01/26/17 23:07) Levofloxacin (Levaquin) (01/27/17 00:00) Labs Laboratory Tests Test 01/26/17 01/26/17 21:05 21:40 White Blood Count 13.1 TH/MM3 Red Blood Count 5.00 MIL/MM3 Hemoglobin 14.8 GM/DL Hematocrit 43.3 % Mean Corpuscular Volume 86.6 FL Mean Corpuscular Hemoglobin 29.6 PG Mean Corpuscular Hemoglobin 34.2 % Concent Red Cell Distribution Width 13.2 % Platelet Count 462 TH/MM3 Mean Platelet Volume 7.6 FL Neutrophils (%) (Auto) 65.6 % Lymphocytes (%) (Auto) 14.1 % Monocytes (%) (Auto) 8.5 % Eosinophils (%) (Auto) 11.0 % Basophils (%) (Auto) 0.8 % Neutrophils # (Auto) 8.7 TH/MM3 Lymphocytes # (Auto) 1.8 TH/MM3 Monocytes # (Auto) 1.1 TH/MM3 Eosinophils # (Auto) 1.4 TH/MM3 Basophils # (Auto) 0.1 TH/MM3 CBC Comment DIFF FINAL Differential Comment Prothrombin Time 10.7 SEC Prothromb Time International 1.0 RATIO Ratio Activated Partial 31.1 SEC Thromboplast Time D-Dimer Quantitative (PE/DVT) 0.87 MG/L FEU Sodium Level 143 MEQ/L Potassium Level 3.7 MEQ/L Chloride Level 106 MEQ/L Carbon Dioxide Level 28.8 MEQ/L Anion Gap 8 MEQ/L Blood Urea Nitrogen 15 MG/DL Creatinine 0.88 MG/DL Estimat Glomerular Filtration 92 ML/MIN Rate Random Glucose 88 MG/DL Calcium Level 9.0 MG/DL Magnesium Level 1.9 MG/DL Troponin I LESS THAN 0.02 NG/ML Lactic Acid Level 0.9 mmol/L [facility] Medical Decision Making Medical Screen Exam Complete: Yes Emergency Medical Condition: Yes Medical Record Reviewed: Yes Interpretation(s) lactic acid: 0.9, not elevated troponin I: Less than 0.02 Coagulation studies: Within normal range; d-dimer mildly elevated at 0.87 Last Impressions Chest X-Ray 01/26/17 0000 Signed Impressions: Service Date/Time: Thursday, January 26, 2017 21:15 - CONCLUSION: No acute cardiopulmonary disease. Lexy Nicholas MD CT Angiography 01/26/17 0000 Signed Impressions: Service Date/Time: Thursday, January 26, 2017 22:48 - CONCLUSION: 1. Pneumonia with patchy bilateral infiltrates seen. Small right effusion. 2. No evidence of pulmonary embolus. Babak Cain MD CBC & BMP Diagram 01/26/17 21:05 Vital Signs Date Time Temp Pulse Resp B/P Pulse Ox O2 Delivery O2 Flow Rate FiO2 01/26/17 23:05 106 155/89 95 1 01/26/17 22:52 98.7 01/26/17 22:03 114 20 146/85 95 Nasal Cannula 2 01/26/17 22:00 Aerosol Mask 01/26/17 21:32 113 20 141/81 96 Nasal Cannula 2 01/26/17 21:13 Nasal Cannula 2 01/26/17 21:11 100.2 118 22 137/92 93 01/26/17 21:10 93 Room Air Differential Diagnosis Pleurisy, PE, pneumothorax, pneumonia, exacerbation COPD, ACS, musculoskeletal pain, atypical biliary colic Narrative Course Patient placed on animal care provider IV access obtained specimens collected and sent for resulting patient placed on supple oxygen 2 L/m nasal cannula EKG shows sinus tachycardia no acute ST elevation or injury pattern or ectopy noted ; normal saline administered@125 cc per hour; stat chest x-ray ordered Chest x-ray reveals no pneumothorax, no lobar infiltrate, no effusion; patient treated with presumptive Rocephin 1 g IV piggyback; d-dimer pending however in view of patient's previous PE and DVT may require CT pulmonary angiogram. Patient reportedly does have a [place] filter. Patient with elevated d-dimer sent for CT pulmonary angiogram CT reveals no evidence of PE but bilateral lower lobe infiltrates consistent with pneumonia patient is artery received Rocephin 1 g IV piggyback plan to administer azithromycin however have discussed this with patient and he states he cannot be admitted patient will be given oral dose of Levaquin due to same bioavailability IV versus by mouth. Patient is aware that we will take him off supplemental oxygen as he does not use supplemental oxygen at home and that his oxygen saturations decrease he will have to sign out AGAINST MEDICAL ADVICE. Patient is aware of the risks and benefits of staying for IV antibiotics IV fluids supplemental oxygen serial updraft treatments and rest in view of his history of COPD with exacerbation and bilateral lower lobe infiltrates consistent with pneumonia with white cell count elevation and presentation with increased heart rate and increased respiratory rate and white count of 13,000. Patient states that he is aware of the benefit of staying in the hospital and the risk of deteriorating as an outpatient but states that he will not be admitted as he feels well at this time he has albuterol with a nebulizer at home he will take oral antibiotic as prescribed he will also take medications as needed for fever and he will return to the hospital immediately should he did not show any evidence of improvement or should he feel like she is getting worse but as he has not been on any antibiotics as an outpatient he would like to have a trial as an outpatient before being admitted to the hospital. Patient states he started new job and that he cannot be admitted at this time. Patient without supple oxygen resources at home and desaturates to 86% with exertion; patient informed that he needs to be admitted to the hospital; again states he cannot be admitted will sign out AGAINST MEDICAL ADVICE; in view of patient's pneumonia diagnosis he will be discharged with prescription and he is encouraged to return for admission. Critical Care Narrative Aggregate critical care time was 40 minutes. Time to perform other separately billable procedures was not included in the critical care time. My time did not include minutes spent treating any other patients simultaneously or on activities that did not directly contribute to the patient's treatment. The services I provided to this patient were to treat and/or prevent clinically significant deterioration that could result in: Respiratory failure, septic shock, I provided critical care services requiring my management, as noted below: Chart data review, documentation time, medication orders and management, vital sign assessments/reviewing monitor data, ordering and reviewing lab tests, ordering and interpreting/reviewing x-rays and diagnostic studies, care of the patient and discussion of the patient with the admitting physicians. Sepsis Criteria SIRS Criteria (2 or more): Heart rate over 90, RR > 20 or PaCO2 < 32, WBC > 74697, < 4000 or > 10% bands Sepsis Criteria (SIRS+source): Infect source susp/known Diagnosis Primary Impression: Pneumonia Qualified Code: J18.9 - Pneumonia of both lower lobes due to infectious organism Additional Impressions: Sepsis Qualified Code: A41.9 - Sepsis, due to unspecified organism COPD (chronic obstructive pulmonary disease) Referrals: Primary Care Physician 1 day Patient Instructions: General Instructions Additional Instructions: Complete course of antibiotic as prescribed Follow-up with primary care provider call office in a.m. to schedule follow-up appointment Take acetaminophen/Tylenol every 4 hours as needed for fever 100.4F or greater Take as tolerated ibuprofen/Advil/Motrin every 6-8 hours as needed for fever 100.4F or greater Increase fluid hydration Med/Other Pt SpecificInfo: Prescription(s) given Scripts Levofloxacin (Levaquin)750 Mg Evx865 Mg PO DAILY 7 Days Ref 0 Prov:Katy Neff MD 01/27/17 Disposition: 07 AGAINST MEDICAL ADVICE Condition: Stable Katy Neff MD Jan 26, 2017 21:28
[2017-01-26] MEDS ORDERED: ACETAMINOPHEN 325 MG TAB PO ONE (21:30)
[2017-01-26] MEDS ORDERED: cefTRIAXone INJ 1,000 MG in SODIUM CHLORIDE 0.9% INJ 100 ML IV ONE (21:30)
[2017-01-26 21:31] LABS: AUTOMATED NEUTROPHIL # 8.7 TH/MM3 (1.8-7.7); BASOPHIL # 0.1 TH/MM3 (0-0.2); BASOPHIL % 0.8 % (0.0-2.0); EOSINOPHIL # 1.4 TH/MM3 (0-0.4); HEMATOCRIT 43.3 % (39.0-51.0); HEMO FLAGS DIFF FINAL; LYMPH % 14.1 % (9.0-44.0); LYMPHOCYTE # 1.8 TH/MM3 (1.0-4.8); MEAN CELL VOLUME 86.6 FL (80.0-100.0); MEAN CORPUSCULAR HEMOGLOBIN 29.6 PG (27.0-34.0); MEAN CORPUSCULAR HGB CONC 34.2 % (32.0-36.0); MONO % 8.5 % (0.0-8.0); NEUT % 65.6 % (16.0-70.0); PLATELET COUNT 462 TH/MM3 (150-450); RED CELL DISTRIBUTION WIDTH 13.2 % (11.6-17.2); WHITE BLOOD COUNT 13.1 TH/MM3 (4.0-11.0)
[2017-01-26 21:32] VITALS: BP 141/81; PULSE 113; RESP 20; O2SAT 96
[2017-01-26 21:37] LABS: CHLORIDE 106 MEQ/L (98-107); POTASSIUM 3.7 MEQ/L (3.5-5.1); SODIUM (NA) 143 MEQ/L (136-145)
[2017-01-26 21:40] LABS: ANION GAP 8 MEQ/L (5-15); BICARBONATE 28.8 MEQ/L (21.0-32.0); MAGNESIUM 1.9 MG/DL (1.5-2.5)
[2017-01-26 21:41] LABS: BLOOD UREA NITROGEN 15 MG/DL (7-18)
--- NOTE | 2017-01-26 21:41 | RADHPO ---
EXAM DATE/TIME: 01/26/2017 21:15 [facility] COMPARISON: CHEST SINGLE AP, January 03, 2017, 7:11. INDICATIONS : Right sided chest pain for 24 hours MEDICAL HISTORY : None. SURGICAL HISTORY : None. ENCOUNTER: Initial ACUITY: 1 day PAIN SCORE: 10/10 LOCATION: Right chest FINDINGS: The lungs are clear without infiltrate, nodule, or mass. There is no appreciable pleural effusion fo r technique. Heart and mediastinum are unremarkable. CONCLUSION: No acute cardiopulmonary disease. Lexy Nicholas MD on January 26, 2017 at 21:39 Board Certified Radiologist. This report was verified electronically.
[2017-01-26 21:44] LABS: GLOMERULAR FILTRATION RATE 92 ML/MIN (>89)
[2017-01-26] MEDS ORDERED: ONDANSETRON HCL 4 MG/2 ML VIAL IV PUSH ONE (21:45)
[2017-01-26] MEDS ORDERED: RESP: ALBUTEROL 2.5 MG/IPRATROPIUM 0.5 MG NEB (SCH) NEB ONE (21:45)
[2017-01-26] MEDS ORDERED: methylPREDNISolone SOD SUCC 125 MG/2 ML VIAL IV PUSH ONE (21:45)
[2017-01-26] MEDS ORDERED: PANTOPRAZOLE SODIUM 40 MG VIAL IV PUSH ONE (21:45)
[2017-01-26] MEDS ORDERED: MORPHINE SULFATE 4 MG/ML INJ IV PUSH ONE (21:45)
[2017-01-26 21:48] LABS: APTT (PATIENT) 31.1 SEC (24.3-30.1); PROTHROMBIN TIME - PATIENT 10.7 SEC (9.8-11.6)
[2017-01-26 22:03] VITALS: BP 146/85; PULSE 114; RESP 20; O2SAT 95
[2017-01-26] MEDS ORDERED: SODIUM CHLORID 0.9% 500 ML INJ 500 ML IV ONE (22:45)
[2017-01-26 22:52] VITALS: TEMP 98.7
[2017-01-26 23:05] VITALS: BP 155/89; PULSE 106; O2SAT 95
[2017-01-26] MEDS ORDERED: IOHEXOL 350 MG/ML 10 ML VIAL (for RAD DIAG) IV ONE (23:07)
--- NOTE | 2017-01-26 23:16 | RADHPO ---
EXAM DATE/TIME: 01/26/2017 22:48 [facility] COMPARISON: CT PULMONARY ANGIOGRAM, October 14, 2016, 23:22. INDICATIONS : Shortness of breath and right sided chest pain during inhalation. IV CONTRAST: 65 cc Omnipaque 350 (iohexol) IV RADIATION DOSE: 19.03 CTDIvol (mGy) MEDICAL HISTORY : Chronic obstructive pulmonary disease. SURGICAL HISTORY : None. ENCOUNTER: Initial ACUITY: 1 day PAIN SCALE: 10/10 LOCATION: Right chest TECHNIQUE: Volumetric scanning of the chest was performed using a pulmonary embolism protocol MIP images were re constructed. Using automated exposure control and adjustment of the mA and/or kV according to patien t size, radiation dose was kept as low as reasonably achievable to obtain optimal diagnostic quality images. FINDINGS: There are patchy parenchymal infiltrates in the right upper lobe, left upper lobe, right middle lobe and both lower lobes. There is a small right-sided pleural effusion. No pathologically enlarged lymph nodes are identified. There is no evidence for pulmonary embolism. CONCLUSION: 1. Pneumonia with patchy bilateral infiltrates seen. Small right effusion. 2. No evidence of pulmonary embolus. Babak Cain MD on January 26, 2017 at 23:13 Board Certified Radiologist. This report was verified electronically.
[2017-01-26 23:59] VITALS: PULSE 106; RESP 22; TEMP 98.7; O2SAT 93
[2017-01-27] MEDS ORDERED: LEVOFLOXACIN 750 MG TAB PO ONE
[2017-01-27] MEDS ORDERED: LEVA750T PO (00:16)
--- NOTE | 2017-01-27 14:35 | EKG ---
Date Performed: 01/26/2017 Time Performed: 20:59:52 PTAGE: 46 years EKG: Sinus tachycardia. Septal T wave changes are nonspecific Borderline ECG Compared to prior t racing no significant change PREVIOUS TRACING : 01/03/2017 07.17 DOCTOR: Joel Ann Interpretating Date/Time 01/27/2017 14:34:16
== END 2017-01-27 00:25 | disposition left against medical advice (07) ==
LOC: PHED 21:01
DX: J18.9 Pneumonia, unspecified organism (principal); J44.9 Chronic obstructive pulmonary disease, unspecified; A41.9 Sepsis, unspecified organism; Z86.718 Personal history of other venous thrombosis and embolism; R00.0 Tachycardia, unspecified; Z86.711 Personal history of pulmonary embolism; Z79.01 Long term (current) use of anticoagulants; F17.210 Nicotine dependence, cigarettes, uncomplicated; Z96.89 Presence of other specified functional implants; K21.9 Gastro-esophageal reflux disease without esophagitis
CPT/HCPCS: 71010; 71275; 80048; 83605; 83735; 84484; 85025; 85379; 85610; 85730; 87040; 93005; 94664; 96361; 96365; 96375; 99291; C9113; J0696; J2270; J2405; J2930; J7030; J7040; Q9967

== ENCOUNTER 2017-01-29 09:24 | Emergency (ER) | payer OTHER ==
[~2017-01-29] VITALS: Ht 185.4 cm; Wt 105.0 kg
[~2017-01-29 09:24] MED LIST changes: +LEVA750T PO
[2017-01-29 09:27] VITALS: BP 124/93; PULSE 102; RESP 22; TEMP 97.8; O2SAT 90
[2017-01-29 09:51] VITALS: BP 138/90; PULSE 99; RESP 16; TEMP 97.8; O2SAT 93
--- NOTE | 2017-01-29 10:13 | PD ---
HPI Chief Complaint: Respiratory Symptoms Time Seen by Provider: 10:03 Travel History International Travel<30 days: No Contact w/Intl Traveler<30days: No Traveled to known affect area: No History of Present Illness HPI 46-year-old male with history of COPD, recently seen in the ER for pneumonia 3 days ago, had left AGAINST MEDICAL ADVICE after being advised to be admitted, presents back to the ER today because of right sided chest discomfort and ongoing dyspnea. He states that this is the same symptoms he had when he was here. He states that ibuprofen would not take the pain away. He has been on Levaquin prescribed to him for several days without improvement in symptoms. He denies any new fevers, or any other issues. He currently rates the pain at a 6 out of 10 which worsens with deep breaths and movements. Modifying Factors: None Associated Signs & Symptoms: Coughing, dyspnea, chest pain Risk Factors: Recent pneumonia PFSH Past Medical History Hx Anticoagulant Therapy: Yes Anxiety: Yes Heart Rhythm Problems: Yes (TACHYCARDIA) Cancer: No Cardiovascular Problems: Yes (CHRONIC TACHYCARDIA) Congestive Heart Failure: No COPD: Yes Coronary Artery Disease: No Diabetes: No Diminished Hearing: No Diverticulitis: Yes Deep Vein Thrombosis: Yes (PE-FILTER UPPER LEG ) Endocrine: No Gastrointestinal Disorders: Yes (COLOSTOMY MAY 2016, DIVERTICULITIS, SEPSIS) GERD: Yes Genitourinary: No Implanted Vascular Access Dvce: Yes (FILTER) Musculoskeletal: No Neurologic: No Psychiatric: No Respiratory: Yes (COPD) ?: Not Past Surgical History Abdominal Surgery: Yes (LIVER BIOPSY, COLOSTOMY) Appendectomy: Yes Body Medical Devices: SUAD FILTER Other Surgery: Yes Social History Alcohol Use: Yes (OCCASIONAL ON WEEKEND) Tobacco Use: Yes (1 PACK PER WEEK) Substance Use: No Allergies-Medications (Allergen,Severity, Reaction): Coded Allergies: No Known Allergies (Unverified , 01/29/17) Reported Meds & Prescriptions Reported Meds & Active Scripts Active Levaquin (Levofloxacin) 750 Mg Tab 750 Mg PO DAILY 7 Days Breo Ellipta Inh (Fluticasone/Vilanterol) 100-25 Mcg/Act Inh 1 Puff INH DAILY Use daily at the same time. Spiriva Respimat Inh (Tiotropium Inh) 2.5 Mcg/Act Aero 2 Puff INH DAILY 2.5 mcg = 1 inhalation Albuterol Neb (Albuterol Sulfate) 2.5 Mg/3 Ml Neb 2.5 Mg NEB Q4HR NEB While awake Review of Systems Except as stated in HPI: all other systems reviewed are Neg Physical Exam Narrative GENERAL: Middle age male patient currently not in acute distress at rest. Awake and oriented 3. SKIN: Warm and dry. HEAD: Atraumatic. Normocephalic. EYES: Pupils equal and round. No scleral icterus. No injection or drainage. ENT: No nasal bleeding or discharge. Mucous membranes pink and moist. NECK: Trachea midline. No JVD. CARDIOVASCULAR: Regular rate and rhythm. No murmur appreciated. CHEST: Nontender throughout without deformity or crepitance. No retractions or use of accessory muscles. RESPIRATORY: No accessory muscle use. Clear to auscultation. Breath sounds equal bilaterally. GASTROINTESTINAL: Abdomen soft, non-tender, nondistended. Hepatic and splenic margins not palpable. MUSCULOSKELETAL: No obvious deformities. No clubbing. No cyanosis. No edema. NEUROLOGICAL: Awake and alert. No obvious cranial nerve deficits. Motor grossly within normal limits. Normal speech. PSYCHIATRIC: Appropriate mood and affect; insight and judgment normal. Data Data Last Documented VS Vital Signs Date Time Temp Pulse Resp B/P Pulse Ox O2 Delivery O2 Flow Rate FiO2 01/29/17 10:45 92 20 153/84 95 Nasal Cannula 2 01/29/17 09:51 97.8 Orders Complete Blood Count With Diff (01/29/17 10:03) Basic Metabolic Panel (Bmp) (01/29/17 10:03) Chest, Single Ap (01/29/17 10:13) Ketorolac Inj (Toradol Inj) (01/29/17 10:45) Labs Laboratory Tests Test 01/29/17 10:35 White Blood Count 11.2 TH/MM3 Red Blood Count 5.16 MIL/MM3 Hemoglobin 15.0 GM/DL Hematocrit 45.3 % Mean Corpuscular Volume 87.7 FL Mean Corpuscular Hemoglobin 29.1 PG Mean Corpuscular Hemoglobin 33.2 % Concent Red Cell Distribution Width 13.6 % Platelet Count 478 TH/MM3 Mean Platelet Volume 7.2 FL Neutrophils (%) (Auto) 60.4 % Lymphocytes (%) (Auto) 19.7 % Monocytes (%) (Auto) 9.7 % Eosinophils (%) (Auto) 7.6 % Basophils (%) (Auto) 2.6 % Neutrophils # (Auto) 6.8 TH/MM3 Lymphocytes # (Auto) 2.2 TH/MM3 Monocytes # (Auto) 1.1 TH/MM3 Eosinophils # (Auto) 0.8 TH/MM3 Basophils # (Auto) 0.3 TH/MM3 CBC Comment DIFF FINAL Differential Comment Sodium Level 143 MEQ/L Potassium Level 4.1 MEQ/L Chloride Level 106 MEQ/L Carbon Dioxide Level 29.7 MEQ/L Anion Gap 7 MEQ/L Blood Urea Nitrogen 14 MG/DL Random Glucose 97 MG/DL Calcium Level 8.7 MG/DL MDM Medical Decision Making Medical Screen Exam Complete: Yes Emergency Medical Condition: Yes Medical Record Reviewed: Yes Interpretation(s) EKG shows NSR, no ST elevation or depression, and no arrhythmias. No significant T-wave inversions. Laboratory Tests Test 01/29/17 10:35 White Blood Count 11.2 TH/MM3 (4.0-11.0) Platelet Count 478 TH/MM3 (150-450) Monocytes (%) (Auto) 9.7 % (0.0-8.0) Eosinophils (%) (Auto) 7.6 % (0.0-4.0) Basophils (%) (Auto) 2.6 % (0.0-2.0) Monocytes # (Auto) 1.1 TH/MM3 (0-0.9) Eosinophils # (Auto) 0.8 TH/MM3 (0-0.4) Basophils # (Auto) 0.3 TH/MM3 (0-0.2) Differential Diagnosis Right sided chest pains, cough, dyspneaworsening pneumonia versus costochondritis versus pleurisy versus other acute pulmonary processes Narrative Course Chest x-ray shows pneumonia seen previously on CAT scan. However, no signs of pneumothorax or any signs of acute processes. His lab work did not show significant metabolic issues and his white blood cell count is improving. Patient is ambulatory in the ER without issues. At this point, I have talked to him about the risks and benefits of outpatient therapy versus observation admission. 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 At this point, he does not want to be admitted to the hospital. However, he does feel that he needs something to help control his chest wall pains. My plan would be to give him symptomatic relief or pain. I do not believe that he has any new acute processes. I believe that this is secondary to his pneumonia. He should return for any worsening in symptoms as necessary. The plan has been discussed with him and he states understanding. Diagnosis Primary Impression: Chest pain Additional Impression: Pneumonia Med/Other Pt SpecificInfo: Prescription(s) given Scripts Hydrocodone-Acetaminophen (Lortab)5-325 Mg Tab1 Tab PO Q6H PRN (PAIN) #12 TAB Ref 0 Prov:Lazaro Mills MD 01/29/17 Ibuprofen (Motrin Ib)200 Mg Fvx043 Mg PO Q6H PRN (PAIN SCALE 1 TO 10) #21 TAB Ref 0 Prov:Lazaro Mills MD 01/29/17 Disposition: 01 DISCHARGE HOME Condition: Stable Lazaro Mills MD Jan 29, 2017 10:12
[2017-01-29 10:40] VITALS: O2SAT 98
[2017-01-29 10:45] VITALS: BP 153/84; PULSE 92; RESP 20; O2SAT 95
[2017-01-29] MEDS ORDERED: KETOROLAC TROMETHAMINE 30 MG/ML (IVP) VIAL IV PUSH ONE (10:45)
[2017-01-29 10:48] LABS: AUTOMATED NEUTROPHIL # 6.8 TH/MM3 (1.8-7.7); BASOPHIL # 0.3 TH/MM3 (0-0.2); BASOPHIL % 2.6 % (0.0-2.0); EOSINOPHIL # 0.8 TH/MM3 (0-0.4); EOSINOPHIL % 7.6 % (0.0-4.0); HEMATOCRIT 45.3 % (39.0-51.0); HEMO FLAGS DIFF FINAL; LYMPH % 19.7 % (9.0-44.0); LYMPHOCYTE # 2.2 TH/MM3 (1.0-4.8); MEAN CELL VOLUME 87.7 FL (80.0-100.0); MEAN CORPUSCULAR HEMOGLOBIN 29.1 PG (27.0-34.0); MEAN CORPUSCULAR HGB CONC 33.2 % (32.0-36.0); MONO % 9.7 % (0.0-8.0); NEUT % 60.4 % (16.0-70.0); PLATELET COUNT 478 TH/MM3 (150-450); RED BLOOD COUNT 5.16 MIL/MM3 (4.50-5.90); RED CELL DISTRIBUTION WIDTH 13.6 % (11.6-17.2); WHITE BLOOD COUNT 11.2 TH/MM3 (4.0-11.0)
--- NOTE | 2017-01-29 10:51 | RADHPO ---
EXAM DATE/TIME: 01/29/2017 10:35 [facility] COMPARISON: CHEST SINGLE AP, January 26, 2017, 21:15. INDICATIONS : Right side chest pain for five days. MEDICAL HISTORY : None. SURGICAL HISTORY : None. ENCOUNTER: Initial ACUITY: 4 - 6 days PAIN SCORE: 10/10 LOCATION: Right upper chest FINDINGS: Single AP view of the chest demonstrates bibasilar airspace consolidation, right worse than left. Thi s is new as compared to the prior exam. Heart size is normal. The pulmonary vasculature is normal. Os seous structures are intact. CONCLUSION: Findings consistent with acute pneumonia involving the bilateral lung bases, right greater than left. Flor Anand MD on January 29, 2017 at 10:49 Board Certified Radiologist. This report was verified electronically.
[2017-01-29 10:53] LABS: POTASSIUM 4.1 MEQ/L (3.5-5.1)
[2017-01-29 10:56] LABS: BICARBONATE 29.7 MEQ/L (21.0-32.0)
[2017-01-29] MEDS ORDERED: HYDR-3533 PO (11:00)
[2017-01-29] MEDS ORDERED: MOTR200T4 PO (11:00)
--- NOTE | 2017-01-30 15:53 | EKG ---
Date Performed: 01/29/2017 Time Performed: 09:32:12 PTAGE: 46 years EKG: Sinus rhythm with Premature atrial contractions Compared to prior tracing no significant change Borderline ECG PREVIOUS TRACING : 01/26/2017 20.59 DOCTOR: Curt Parekh Interpretating Date/Time 01/30/2017 15:51:55
== END 2017-01-29 11:22 | disposition home or self-care (01) ==
LOC: PHED 09:24
DX: J18.9 Pneumonia, unspecified organism (principal)
CPT/HCPCS: 71010; 80048; 85025; 93005; 96374; 99285; J1885

== ENCOUNTER 2017-02-27 22:56 | Emergency (ER) | payer OTHER ==
[~2017-02-27] VITALS: Ht 185.4 cm; Wt 104.0 kg
[~2017-02-27 22:56] MED LIST changes: +HYDR-3533 PO; +MOTR200T4 PO; -PRED5PAK PO
[2017-02-27 23:03] VITALS: BP 112/82; PULSE 120; RESP 24; TEMP 98.3; O2SAT 87
[2017-02-27 23:06] VITALS: RESP 24; O2SAT 92
[2017-02-27] MEDS: RESP: ALBUTEROL 2.5 MG/IPRATROPIUM 0.5 MG NEB (SCH) INH ×3 (23:10→23:30)
[2017-02-27] MEDS ORDERED: methylPREDNISolone SOD SUCC 125 MG/2 ML VIAL IVP ONE (23:15)
[2017-02-27] MEDS ORDERED: SODIUM CHLORIDE 0.9% FLUSH 10 ML FLUSH IVF PRN (23:15)
[2017-02-27 23:26] LABS: POTASSIUM 3.9 MEQ/L (3.5-5.1)
[2017-02-27 23:29] LABS: BICARBONATE 25.1 MEQ/L (21.0-32.0)
[2017-02-27 23:30] VITALS: BP 133/90; PULSE 114; RESP 24; TEMP 98; O2SAT 95
[2017-02-27 23:41] LABS: BASOPHIL # 0.1 TH/MM3 (0-0.2); BASOPHIL % 0.6 % (0.0-2.0); EOSINOPHIL # 1.2 TH/MM3 (0-0.4); EOSINOPHIL % 9.3 % (0.0-4.0); HEMATOCRIT 45.8 % (39.0-51.0); HEMO FLAGS DIFF FINAL; LYMPH % 20.1 % (9.0-44.0); LYMPHOCYTE # 2.7 TH/MM3 (1.0-4.8); MEAN CELL VOLUME 87.1 FL (80.0-100.0); MEAN CORPUSCULAR HEMOGLOBIN 28.4 PG (27.0-34.0); MEAN CORPUSCULAR HGB CONC 32.6 % (32.0-36.0); PLATELET COUNT 393 TH/MM3 (150-450); RED BLOOD COUNT 5.26 MIL/MM3 (4.50-5.90); RED CELL DISTRIBUTION WIDTH 13.5 % (11.6-17.2); WHITE BLOOD COUNT 13.3 TH/MM3 (4.0-11.0)
[2017-02-28] VITALS: BP 147/94; PULSE 120; RESP 22; O2SAT 94
--- NOTE | 2017-02-28 00:28 | PD ---
HPI Chief Complaint: Respiratory Symptoms Time Seen by Provider: 23:02 Travel History International Travel<30 days: No Contact w/Intl Traveler<30days: No Traveled to known affect area: No History of Present Illness HPI The patient is a 46-year-old male with a history of COPD who complains of shortness of breath and wheezing since this evening. He states he has an appointment tomorrow at [facility] and he does not want to miss it. He continues to smoke one half to one pack a day. He denies any fever. He does not want to be admitted. He denies any chest pain. PFSH Past Medical History Hx Anticoagulant Therapy: Yes Anxiety: Yes Heart Rhythm Problems: Yes (TACHYCARDIA) Cancer: No Cardiovascular Problems: Yes (CHRONIC TACHYCARDIA) Congestive Heart Failure: No COPD: Yes Coronary Artery Disease: No Diabetes: No Diminished Hearing: No Diverticulitis: Yes Deep Vein Thrombosis: Yes (PE-FILTER UPPER LEG ) Endocrine: No Gastrointestinal Disorders: Yes (COLOSTOMY MAY 2016, DIVERTICULITIS, SEPSIS) GERD: Yes Genitourinary: No Implanted Vascular Access Dvce: Yes (FILTER) Musculoskeletal: No Neurologic: No Psychiatric: No Respiratory: Yes (COPD) Immunizations Current: Yes Tetanus Vaccination: > 5 Years Influenza Vaccination: Yes Past Surgical History Abdominal Surgery: Yes (LIVER BIOPSY, COLOSTOMY) Appendectomy: Yes Body Medical Devices: SUAD FILTER Other Surgery: Yes Social History Alcohol Use: Yes (OCCASIONAL ON WEEKEND) Tobacco Use: Yes (1 PACK PER WEEK) Substance Use: No Allergies-Medications (Allergen,Severity, Reaction): Coded Allergies: No Known Allergies (Unverified , 02/27/17) Reported Meds & Prescriptions Reported Meds & Active Scripts Active Zithromax (Azithromycin) 500 Mg Tab 500 Mg PO DAILY 5 Days Breo Ellipta Inh (Fluticasone/Vilanterol) 100-25 Mcg/Act Inh 1 Puff INH DAILY Use daily at the same time. Spiriva Respimat Inh (Tiotropium Inh) 2.5 Mcg/Act Aero 2 Puff INH DAILY 2.5 mcg = 1 inhalation Albuterol Neb (Albuterol Sulfate) 2.5 Mg/3 Ml Neb 2.5 Mg NEB Q4HR NEB While awake Review of Systems Except as stated in HPI: all other systems reviewed are Neg Physical Exam Narrative GENERAL: The patient is alert, oriented 3 in moderate respirator distress. His vitals signs show pulse of 120 and respirations 24 with oximetry 87% on room air. SKIN: Focused skin assessment warm/dry. HEAD: Atraumatic. Normocephalic. EYES: Pupils equal and round. No scleral icterus. No injection or drainage. ENT: No nasal bleeding or discharge. Mucous membranes pink and moist. NECK: Trachea midline. No JVD. CARDIOVASCULAR: Regular rate and rhythm. No murmur appreciated. RESPIRATORY: No accessory muscle use. Bilateral wheezes are heard in all lung peña. Breath sounds equal bilaterally. GASTROINTESTINAL: Abdomen soft, non-tender, nondistended. Hepatic and splenic margins not palpable. MUSCULOSKELETAL: No obvious deformities. No clubbing. No cyanosis. No edema. NEUROLOGICAL: Awake and alert. No obvious cranial nerve deficits. Motor grossly within normal limits. Normal speech. PSYCHIATRIC: Appropriate mood and affect; insight and judgment normal. Data Data Last Documented VS Vital Signs Date Time Temp Pulse Resp B/P Pulse Ox O2 Delivery O2 Flow Rate FiO2 02/28/17 01:00 120 22 142/90 96 Nasal Cannula 2 02/27/17 23:30 98.0 Orders Complete Blood Count With Diff (02/27/17 23:02) Basic Metabolic Panel (Bmp) (02/27/17 23:02) Iv Access Insert/Monitor (02/27/17 23:02) Ecg Monitoring (02/27/17 23:02) Oximetry (02/27/17 23:02) Oxygen Administration (02/27/17 23:02) Sodium Chloride 0.9% Flush (Ns Flush) (02/27/17 23:15) Methylprednisolone So Succ Inj (Solumedr (02/27/17 23:15) Albuterol-Ipratropium Neb (Duoneb Neb) (02/27/17 23:15) Chest, Pa & Lat (02/27/17 23:43) Albuterol-Ipratropium Neb (Duoneb Neb) (02/28/17 00:30) Albuterol-Ipratropium Neb (Duoneb Neb) (02/28/17 01:15) Labs Laboratory Tests Test 02/27/17 23:10 White Blood Count 13.3 TH/MM3 Red Blood Count 5.26 MIL/MM3 Hemoglobin 15.0 GM/DL Hematocrit 45.8 % Mean Corpuscular Volume 87.1 FL Mean Corpuscular Hemoglobin 28.4 PG Mean Corpuscular Hemoglobin 32.6 % Concent Red Cell Distribution Width 13.5 % Platelet Count 393 TH/MM3 Mean Platelet Volume 7.8 FL Neutrophils (%) (Auto) 60.0 % Lymphocytes (%) (Auto) 20.1 % Monocytes (%) (Auto) 10.0 % Eosinophils (%) (Auto) 9.3 % Basophils (%) (Auto) 0.6 % Neutrophils # (Auto) 8.0 TH/MM3 Lymphocytes # (Auto) 2.7 TH/MM3 Monocytes # (Auto) 1.3 TH/MM3 Eosinophils # (Auto) 1.2 TH/MM3 Basophils # (Auto) 0.1 TH/MM3 CBC Comment DIFF FINAL Differential Comment Sodium Level 142 MEQ/L Potassium Level 3.9 MEQ/L Chloride Level 110 MEQ/L Carbon Dioxide Level 25.1 MEQ/L Anion Gap 7 MEQ/L Blood Urea Nitrogen 13 MG/DL Creatinine 0.84 MG/DL Estimat Glomerular Filtration 98 ML/MIN Rate Random Glucose 94 MG/DL Calcium Level 8.3 MG/DL [facility] Medical Decision Making Medical Screen Exam Complete: Yes Emergency Medical Condition: Yes Medical Record Reviewed: Yes Interpretation(s) The chest x-ray shows mild residual atelectasis the right costophrenic angle, otherwise lungs are grossly clear. Differential Diagnosis Status asthmaticus, pneumonia, hypoxemia, bronchitis, continued tobacco abuse, electrolyte disorder, COPD with acute exacerbation Narrative Course It is now 0100 and the patient is sleeping and his oximetry on room air is 96%. His wheezes have diminished. He is still offered admission but we will give him another breathing treatment and discharge him. He will be given Zithromax 500 mg daily for 5 days and a tapered course of prednisone. His chest x-ray is unremarkable. The patient is once again advised to be admitted but he will not be admitted. He wants DuoNeb for his nebulizer. I will give him a prescription for Zithromax , prednisone and a DuoNeb nebulizer treatments. Diagnosis Primary Impression: COPD with acute exacerbation Additional Instructions: As we discussed, you were offered admission but he wanted to make her appointment tomorrow at [facility]. The Zithromax is one tablet daily for 5 days. We gave you one tablet tonight. The prednisone is one tablet twice daily for 4 days followed by one tablet once daily for 4 days. Med/Other Pt SpecificInfo: Prescription(s) given Scripts Ipratropium-Albuterol Neb (Duoneb)0.5-2.5 Mg/3 Ml Neb1 Nebule INH Q6HR NEB #60 NEBULE Ref 0 Prov:Pedrito White MD 02/28/17 Prednisone 50 Mg Tab50 Mg PO BID #12 TAB Ref 0 Prov:Pedrito White MD 02/28/17 Azithromycin (Zithromax)500 Mg Gum308 Mg PO DAILY 5 Days Ref 0 Prov:Pedrito White MD 02/28/17 Disposition: 01 DISCHARGE HOME Condition: Stable Pedrito White MD Feb 28, 2017 00:28
[2017-02-28 00:30] VITALS: BP 148/85; PULSE 116; RESP 22; O2SAT 95
[2017-02-28 00:34] VITALS: O2SAT 96
[2017-02-28] MEDS: RESP: ALBUTEROL 2.5 MG/IPRATROPIUM 0.5 MG NEB (SCH) INH ×2 (00:34→00:44)
[2017-02-28 01:00] VITALS: BP 142/90; PULSE 120; RESP 22; O2SAT 96
[2017-02-28] MEDS ORDERED: ZITH500T PO (01:04)
[2017-02-28] MEDS ORDERED: RESP: ALBUTEROL 2.5 MG/IPRATROPIUM 0.5 MG NEB (SCH) INH ONE (01:15)
--- NOTE | 2017-02-28 01:23 | RADHPO ---
EXAM DATE/TIME: 02/28/2017 01:04 [facility] COMPARISON: CHEST SINGLE AP, January 26, 2017, 21:15. CHEST SINGLE AP, January 29, 2017, 10:35. INDICATIONS : Short of breath. MEDICAL HISTORY : Chronic obstructive pulmonary disease. Diverticulitis. SURGICAL HISTORY : Colostomy ENCOUNTER: Initial ACUITY: 1 day PAIN SCORE: 0/10 LOCATION: Bilateral chest FINDINGS: PA and lateral views of the chest demonstrate the lungs to be symmetrically aerated without evidence of mass, infiltrate or effusion. The previously noted right lower lung infiltrate has essentially res olved. There is a small amount of residual atelectasis in the right costophrenic angle. The cardiome diastinal contours are unremarkable. Osseous structures are intact. CONCLUSION: 1. Mild residual atelectasis right costophrenic angle. 2. Otherwise, the lungs are grossly clear. Denys New MD on February 28, 2017 at 1:20 Board Certified Radiologist. This report was verified electronically.
[2017-02-28] MEDS ORDERED: PRED50 PO (01:50)
[2017-02-28] MEDS ORDERED: IPRASOL INH (01:50)
[2017-02-28 02:00] VITALS: BP 142/90; PULSE 120; RESP 22; O2SAT 94
[2017-02-28] MEDS ORDERED: AZITHROMYCIN 250 MG TAB PO ONE (02:00)
[2017-02-28 02:26] VITALS: BP 132/73
== END 2017-02-28 02:31 | disposition home or self-care (01) ==
LOC: PHED 22:56
DX: J44.1 Chronic obstructive pulmonary disease with (acute) exacerbation (principal); F17.210 Nicotine dependence, cigarettes, uncomplicated; R00.0 Tachycardia, unspecified; Z86.718 Personal history of other venous thrombosis and embolism; Z79.01 Long term (current) use of anticoagulants
CPT/HCPCS: 71020; 80048; 85025; 94640; 94664; 96374; 99285; J2930

== ENCOUNTER 2017-08-26 06:02 | Emergency (ER) | payer OTHER ==
[~2017-08-26] VITALS: Ht 185.4 cm; Wt 97.0 kg
[~2017-08-26 06:02] MED LIST changes: -HYDR-3533 PO; +IPRASOL INH; -LEVA750T PO; -MOTR200T4 PO; +PRED50 PO; +ZITH500T PO
[2017-08-26 06:08] VITALS: BP 135/94; PULSE 110; RESP 26; TEMP 97.9; O2SAT 92
[2017-08-26] MEDS ORDERED: SODIUM CHLORIDE 0.9% FLUSH 10 ML FLUSH IVF PRN ×3 (06:30→06:45)
[2017-08-26] MEDS ORDERED: methylPREDNISolone SOD SUCC 125 MG/2 ML VIAL IV PUSH ONE (06:30)
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
[2017-08-26] MEDS: RESP: ALBUTEROL 2.5 MG/IPRATROPIUM 0.5 MG NEB (SCH) INH (06:36)
[2017-08-26 06:48] LABS: AUTOMATED NEUTROPHIL # 12.4 TH/MM3 (1.8-7.7); BASOPHIL # 0.1 TH/MM3 (0-0.2); BASOPHIL % 0.7 % (0.0-2.0); EOSINOPHIL % 10.6 % (0.0-4.0); HEMATOCRIT 50.2 % (39.0-51.0); HEMO FLAGS DIFF FINAL; LYMPH % 16.3 % (9.0-44.0); LYMPHOCYTE # 3.1 TH/MM3 (1.0-4.8); MEAN CELL VOLUME 84.3 FL (80.0-100.0); MEAN CORPUSCULAR HEMOGLOBIN 28.3 PG (27.0-34.0); MEAN CORPUSCULAR HGB CONC 33.6 % (32.0-36.0); MONO % 6.8 % (0.0-8.0); NEUT % 65.6 % (16.0-70.0); PLATELET COUNT 467 TH/MM3 (150-450); RED BLOOD COUNT 5.96 MIL/MM3 (4.50-5.90); RED CELL DISTRIBUTION WIDTH 16.2 % (11.6-17.2); WHITE BLOOD COUNT 18.9 TH/MM3 (4.0-11.0)
--- NOTE | 2017-08-26 06:49 | RADRPT ---
EXAM DATE/TIME: 08/26/2017 06:24 [facility] COMPARISON: CHEST SINGLE AP, January 29, 2017, 10:35. INDICATIONS : Shortness of breath for 24 hours MEDICAL HISTORY : None. SURGICAL HISTORY : None. ENCOUNTER: Initial ACUITY: 1 day PAIN SCORE: 0/10 LOCATION: Bilateral chest FINDINGS: A single view of the chest demonstrates the lungs to be symmetrically aerated without evidence of mas s, infiltrate or effusion. The cardiomediastinal contours are unremarkable. Old left-sided rib fract ure. CONCLUSION: No acute disease. Rico Garcia MD on August 26, 2017 at 6:47 Board Certified Radiologist. This report was verified electronically.
[2017-08-26 06:56] LABS: CHLORIDE 104 MEQ/L (98-107); POTASSIUM 4.3 MEQ/L (3.5-5.1); SODIUM (NA) 137 MEQ/L (136-145)
[2017-08-26 07:00] LABS: ANION GAP 7 MEQ/L (5-15); APTT (PATIENT) 32.9 SEC (24.3-30.1); BLOOD UREA NITROGEN 15 MG/DL (7-18); PROTHROMBIN TIME - PATIENT 10.9 SEC (9.8-11.6)
[2017-08-26 07:03] LABS: ALT (GPT) 116 U/L (12-78); AST (GOT) 51 U/L (15-37); GLOMERULAR FILTRATION RATE 86 ML/MIN (>89)
[2017-08-26 07:05] VITALS: BP 140/76; PULSE 115; RESP 20; O2SAT 92
[2017-08-26 07:05] LABS: TOTAL BILIRUBIN ADULT 0.6 MG/DL (0.2-1.0)
[2017-08-26 07:06] LABS: ALKALINE PHOSPHATASE 87 U/L (45-117)
[2017-08-26 07:20] LABS: BLOOD GAS BASE EXCESS 0.1 mmol/L (-2-2); BLOOD GAS CARBOXYHEMOGLOBIN 1.6 % (0-4); BLOOD GAS HCO3 24 mmol/L (22-26); BLOOD GAS METHEMOGLOBIN 1.3 % (0-2); BLOOD GAS O2 HGB SATURATION 89 % (90-100); BLOOD GAS OXYGEN CONTENT 20.9 Vol % (12.0-20.0); BLOOD GAS PCO2 40 mmHG (38-42); BLOOD GAS PO2 63 mmHG (61-120); BLOOD GAS TOTAL HGB 16.7 G/DL (12.0-16.0); TEMP CORR TO 98.6
[2017-08-26 07:21] LABS: CRITICAL VALUE YES; DRAW SITE LT RADIAL; FIO2 21 %; NUMBER OF ARTERIAL PUNCTURES 1; OXYGEN DEVICE RA; STAT YES; ULNAR PULSE PRESENT
[2017-08-26] MEDS ORDERED: IOHEXOL 350 MG/ML 10 ML VIAL (for RAD DIAG) IVCONTRAST ONE (07:25)
--- NOTE | 2017-08-26 07:49 | RADRPT ---
EXAM DATE/TIME: 08/26/2017 07:20 [facility] COMPARISON: CT PULMONARY ANGIOGRAM, January 26, 2017, 22:48. INDICATIONS : Shortness of breath since 3 a.m. IV CONTRAST: 75 cc Omnipaque 350 (iohexol) IV RADIATION DOSE: 15.56 CTDIvol (mGy) MEDICAL HISTORY : Chronic obstructive pulmonary disease. Gastroesophageal reflux disease. SURGICAL HISTORY : Colostomy. PE filter upper leg, liver biopsy ENCOUNTER: Initial ACUITY: 1 day PAIN SCALE: 0/10 LOCATION: chest TECHNIQUE: Volumetric scanning of the chest was performed using a pulmonary embolism protocol MIP images were re constructed. Using automated exposure control and adjustment of the mA and/or kV according to patien t size, radiation dose was kept as low as reasonably achievable to obtain optimal diagnostic quality images. DICOM format image data is available electronically for review and comparison. Follow-up recommendations for detected pulmonary nodules are based at a minimum on nodule size and pa tient risk factors according to Fleischner Society Guidelines. FINDINGS: PULMONARY ARTERIES: No filling defects are seen in the pulmonary arteries through the segmental level. LUNGS: Scattered ground-glass patchy infiltrates are noted the within the lower lobes bilaterally, lingula o f the left upper lobe, and anterior medial aspect of the right upper lobe. These were noted previousl y and are somewhat improved compared to January of 2017. There is no pneumothorax . No concerning pulm onary nodule is visualized. Minimal emphysematous changes are noted within the right apex. PLEURAE: There is no pleural thickening or pleural effusion. MEDIASTINUM: There is good visualization of the great vessels of the middle mediastinum. There are mildly enlarged mediastinal lymph nodes measuring 1.7 x 0.9 cm in the precarinal space and 1.7 x 1.1 cm in the AP wi ndow. There is also mild enlarged right hilar lymph node measuring 1.8 x 1.6 cm. These mildly enlarge d lymph nodes are stable compared to the previous examination in January. MUSCULOSKELETAL: Within normal limits for patient age. MISCELLANEOUS: The visualized upper abdominal organs demonstrate no acute abnormality. CONCLUSION: 1. No evidence of pulmonary embolism. 2. Scattered ground-glass infiltrates bilaterally which are slightly improved compared to January 17. 3. Stable mildly prominent precarinal and AP window mediastinal and right hilar lymphadenopathy. Richie Moreau MD on August 26, 2017 at 7:37 Board Certified Radiologist. This report was verified electronically.
[2017-08-26 08:04] VITALS: O2SAT 84
[2017-08-26] MEDS ORDERED: ZITHTAB PO (08:09)
[2017-08-26] MEDS ORDERED: PRED10 PO (08:09)
--- NOTE | 2017-08-26 08:10 | PD ---
Physical Exam Date Seen by Provider: Aug 26, 2017 Time Seen by Provider: 07:59 Narrative The patient is a 47-year-old male who was initially evaluated by the previous physician, Dr. White. Please refer to the initial history, physical, diagnostic evaluation, and treatment modality plan. The patient was signed out at 7:[address] pulmonary angiogram pending. The patient does have a history of COPD and previous pulmonary embolism and currently has an inferior vena cava filter in place. Data Data Last Documented VS Vital Signs Date Time Temp Pulse Resp B/P (MAP) Pulse Ox O2 Delivery O2 Flow Rate FiO2 08/26/17 07:05 115 20 140/76 (97) 92 Aerosol Mask 08/26/17 06:20 2.00 08/26/17 06:08 97.9 Orders Orders Iv Access Insert/Monitor (08/26/17 06:17) Ecg Monitoring (08/26/17 06:17) Oximetry (08/26/17 06:17) Oxygen Administration (08/26/17 06:17) Chest, Single Ap (08/26/17 06:17) Sodium Chloride 0.9% Flush (Ns Flush) (08/26/17 06:30) Methylprednisolone So Succ Inj (Solumedr (08/26/17 06:30) Albuterol-Ipratropium Neb (Duoneb Neb) (08/26/17 06:30) Ct Pulmonary Angiogram (08/26/17 06:20) Sodium Chloride 0.9% Flush (Ns Flush) (08/26/17 06:30) Complete Blood Count With Diff (08/26/17 06:35) Comprehensive Metabolic Panel (08/26/17 06:35) B-Type Natriuretic Peptide (08/26/17 06:35) Act Partial Throm Time (Ptt) (08/26/17 06:35) Prothrombin Time / Inr (Pt) (08/26/17 06:35) Troponin I (08/26/17 06:35) Arterial Blood Gas (Abg) (08/26/17 06:35) Urinalysis - C+S If Indicated (08/26/17 06:35) Sodium Chloride 0.9% Flush (Ns Flush) (08/26/17 06:45) Iohexol 350 Inj (Omnipaque 350 Inj) (08/26/17 07:25) Labs Laboratory Tests Test 08/26/17 06:41 08/26/17 07:13 White Blood Count 18.9 TH/MM3 Red Blood Count 5.96 MIL/MM3 Hemoglobin 16.9 GM/DL Hematocrit 50.2 % Mean Corpuscular Volume 84.3 FL Mean Corpuscular Hemoglobin 28.3 PG Mean Corpuscular Hemoglobin Concent 33.6 % Red Cell Distribution Width 16.2 % Platelet Count 467 TH/MM3 Mean Platelet Volume 7.8 FL Neutrophils (%) (Auto) 65.6 % Lymphocytes (%) (Auto) 16.3 % Monocytes (%) (Auto) 6.8 % Eosinophils (%) (Auto) 10.6 % Basophils (%) (Auto) 0.7 % Neutrophils # (Auto) 12.4 TH/MM3 Lymphocytes # (Auto) 3.1 TH/MM3 Monocytes # (Auto) 1.3 TH/MM3 Eosinophils # (Auto) 2.0 TH/MM3 Basophils # (Auto) 0.1 TH/MM3 CBC Comment DIFF FINAL Differential Comment Prothrombin Time 10.9 SEC Prothromb Time International Ratio 1.0 RATIO Activated Partial Thromboplast Time 32.9 SEC Blood Urea Nitrogen 15 MG/DL Creatinine 0.93 MG/DL Random Glucose 96 MG/DL Total Protein 8.2 GM/DL Albumin 3.7 GM/DL Calcium Level 8.9 MG/DL Alkaline Phosphatase 87 U/L Aspartate Amino Transf (AST/SGOT) 51 U/L Alanine Aminotransferase (ALT/SGPT) 116 U/L Total Bilirubin 0.6 MG/DL Sodium Level 137 MEQ/L Potassium Level 4.3 MEQ/L Chloride Level 104 MEQ/L Carbon Dioxide Level 26.0 MEQ/L Anion Gap 7 MEQ/L Estimat Glomerular Filtration Rate 86 ML/MIN Troponin I LESS THAN 0.02 NG/ML Blood Gas Puncture Site LT RADIAL Blood Gas Patient Temperature 98.6 Blood Gas HCO3 24 mmol/L Blood Gas Base Excess 0.1 mmol/L Blood Gas Oxygen Saturation 89 % Arterial Blood pH 7.40 Arterial Blood Partial Pressure CO2 40 mmHG Arterial Blood Partial Pressure O2 63 mmHG Arterial Blood Oxygen Content 20.9 Vol % Arterial Blood Carboxyhemoglobin 1.6 % Arterial Blood Methemoglobin 1.3 % Blood Gas Hemoglobin 16.7 G/DL Oxygen Delivery Device RA Blood Gas Inspired Oxygen 21 % [facility] Medical Record Reviewed: Yes Supervised Visit with OJRGE: No Interpretation(s) Last Impressions CT Angiography 08/26/17619 Signed Impressions: Service Date/Time: Saturday, August 26, 2017 07:20 - CONCLUSION: 1. No evidence of pulmonary embolism. 2. Scattered ground-glass infiltrates bilaterally which are slightly improved compared to January of 2017. 3. Stable mildly prominent precarinal and AP window mediastinal and right hilar lymphadenopathy. Richie Moreau MD Chest X-Ray 08/26/17616 Signed Impressions: Service Date/Time: Saturday, August 26, 2017 06:24 - CONCLUSION: No acute disease. Rico Garcia MD Laboratory Tests Test 08/26/17 06:41 08/26/17 07:13 White Blood Count 18.9 TH/MM3 Red Blood Count 5.96 MIL/MM3 Hemoglobin 16.9 GM/DL Hematocrit 50.2 % Mean Corpuscular Volume 84.3 FL Mean Corpuscular Hemoglobin 28.3 PG Mean Corpuscular Hemoglobin Concent 33.6 % Red Cell Distribution Width 16.2 % Platelet Count 467 TH/MM3 Mean Platelet Volume 7.8 FL Neutrophils (%) (Auto) 65.6 % Lymphocytes (%) (Auto) 16.3 % Monocytes (%) (Auto) 6.8 % Eosinophils (%) (Auto) 10.6 % Basophils (%) (Auto) 0.7 % Neutrophils # (Auto) 12.4 TH/MM3 Lymphocytes # (Auto) 3.1 TH/MM3 Monocytes # (Auto) 1.3 TH/MM3 Eosinophils # (Auto) 2.0 TH/MM3 Basophils # (Auto) 0.1 TH/MM3 CBC Comment DIFF FINAL Differential Comment Prothrombin Time 10.9 SEC Prothromb Time International Ratio 1.0 RATIO Activated Partial Thromboplast Time 32.9 SEC Blood Urea Nitrogen 15 MG/DL Creatinine 0.93 MG/DL Random Glucose 96 MG/DL Total Protein 8.2 GM/DL Albumin 3.7 GM/DL Calcium Level 8.9 MG/DL Alkaline Phosphatase 87 U/L Aspartate Amino Transf (AST/SGOT) 51 U/L Alanine Aminotransferase (ALT/SGPT) 116 U/L Total Bilirubin 0.6 MG/DL Sodium Level 137 MEQ/L Potassium Level 4.3 MEQ/L Chloride Level 104 MEQ/L Carbon Dioxide Level 26.0 MEQ/L Anion Gap 7 MEQ/L Estimat Glomerular Filtration Rate 86 ML/MIN Troponin I LESS THAN 0.02 NG/ML Blood Gas Puncture Site LT RADIAL Blood Gas Patient Temperature 98.6 Blood Gas HCO3 24 mmol/L Blood Gas Base Excess 0.1 mmol/L Blood Gas Oxygen Saturation 89 % Arterial Blood pH 7.40 Arterial Blood Partial Pressure CO2 40 mmHG Arterial Blood Partial Pressure O2 63 mmHG Arterial Blood Oxygen Content 20.9 Vol % Arterial Blood Carboxyhemoglobin 1.6 % Arterial Blood Methemoglobin 1.3 % Blood Gas Hemoglobin 16.7 G/DL Oxygen Delivery Device RA Blood Gas Inspired Oxygen 21 % Differential Diagnosis Differential diagnosis includes pulmonary embolism, COPD exacerbation, bronchitis, pneumonia, congestive heart failure, cardiomyopathy, ACS. Narrative Course The patient was initially evaluated by the previous physician, Dr. White. Please refer to the initial history, physical, diagnostic evaluation, and treatment modality plan. The patient was signed out at 7:[address] pulmonary angiogram pending. Chest x-ray is unremarkable, no acute changes. CT pulmonary angiogram reveals no pulmonary embolism, does have glass cut infiltrates which appear improved from previous exam. Mediastinal lymphadenopathy is stable. No evidence of acute pneumonia. Patient's ABG did reveal a PO2 of 89% on room air. The patient initially was treated with steroids and nebulizers. Patient was reevaluated at 8 AM. The patient still had mild wheeze, however, he states his symptoms had significantly improved. The patient's O2 saturation while sleeping was 80%, while awake and talking came up to 92%. I had a discussion with the patient regarding 23 hour observation versus discharge home. The patient states he "feels great ", would prefer to go home. I will write a tapering dose of prednisone as well as Zithromax. The patient states he has an inhaler and plenty of nebulizers at home. He is advised to follow-up with his primary physician and return if symptoms worsen or progress. Diagnosis Primary Impression: COPD with acute exacerbation Patient Instructions: General Instructions Additional Instruction: medications as directed. Follow-up with a primary physician. Stop smoking. Return if symptoms worsen or progress. Med/Other Pt SpecificInfo: Prescription(s) given Scripts Azithromycin (Zithromax Z-Richard) 250 Mg Dspk 250 MG PO DIRECTED for Infection, #1 DSPK 0 Refills 500 MG (2 tabs) day 1, then 1 tab days 2-5. Prov: Mccall,Carefree Z. MD 08/26/17 Prednisone (Prednisone) 10 Mg Tab 10 MG PO DIRECTED for Shortness of Breath, #30 TAB 0 Refills Prov: Gerard Mccall MD 08/26/17 Disposition: 01 DISCHARGE HOME Condition: Stable Gerard Mccall MD Aug 26, 2017 08:10
== END 2017-08-26 08:32 | disposition home or self-care (01) ==
LOC: PHED 06:02
DX: J44.1 Chronic obstructive pulmonary disease with (acute) exacerbation (principal); F17.200 Nicotine dependence, unspecified, uncomplicated; K21.9 Gastro-esophageal reflux disease without esophagitis; Z86.718 Personal history of other venous thrombosis and embolism
CPT/HCPCS: 36600; 71010; 71275; 80053; 82805; 83880; 84484; 85025; 85610; 85730; 94640; 94664; 96374; 99285; J2930; Q9967

== ENCOUNTER 2017-09-13 18:37 | Observation (INO) | payer OTHER ==
[~2017-09-13] VITALS: Ht 185.4 cm; Wt 100.1 kg
[2017-09-13] VITALS (7 sets, daily range): BP systolic 120–140; BP diastolic 77–84; PULSE 113–135; RESP 20–26; TEMP 98.5–100.7; O2SAT 91–97
[~2017-09-13 18:37] MED LIST changes: -IPRASOL INH; +PRED10 PO; -PRED50 PO; -TIOT12.9 INH; -ZITH500T PO; +ZITHTAB PO
[2017-09-13] MEDS ORDERED: methylPREDNISolone SOD SUCC 125 MG/2 ML VIAL IM ONE (18:45)
[2017-09-13] MEDS: RESP: ALBUTEROL 2.5 MG/IPRATROPIUM 0.5 MG NEB (SCH) INH ×3 (18:54→19:13)
--- NOTE | 2017-09-13 19:06 | PD ---
HPI Chief Complaint: Respiratory Symptoms Time Seen by Provider: 18:44 Travel History International Travel<30 days: No Contact w/Intl Traveler<30days: No Traveled to known affect area: No History of Present Illness HPI 47-year-old male, with history of COPD, presents to the emergency department with complaint of chest tightness, shortness of breath, increased work of breathing that started this morning with worsening throughout the day. He's using his albuterol inhaler with no relief of symptoms. Has history of PE and IVC filter. Says he was here about a week ago with the same symptoms and had a CT scan of his chest which was negative for PE; says he was discharged with an inhaler, steroids and 5 days of antibiotics. No known relieving or aggravating factors. Quit smoking cigarettes one month ago. Denies recent illness to include cough, nasal congestion, fevers, vomiting. Has no medical complaints at this time. No known allergies. No other modifying factors or associated signs and symptoms. PFSH Past Medical History Hx Anticoagulant Therapy: Yes Anxiety: Yes Heart Rhythm Problems: Yes (TACHYCARDIA) Cancer: No Cardiovascular Problems: Yes (CHRONIC TACHYCARDIA) Congestive Heart Failure: No COPD: Yes Coronary Artery Disease: No Diabetes: No Diminished Hearing: No Diverticulitis: Yes Deep Vein Thrombosis: Yes (PE-FILTER UPPER LEG ) Endocrine: No Gastrointestinal Disorders: Yes (COLOSTOMY MAY 2016, DIVERTICULITIS, SEPSIS) GERD: Yes Genitourinary: No Hypertension: No Implanted Vascular Access Dvce: Yes (FILTER) Musculoskeletal: No Neurologic: No Psychiatric: No Respiratory: Yes (COPD) Immunizations Current: Yes Past Surgical History Abdominal Surgery: Yes (LIVER BIOPSY, COLOSTOMY) Appendectomy: Yes Body Medical Devices: SUAD FILTER Other Surgery: Yes (colostomy reversal) Social History Alcohol Use: Yes (OCCASIONAL ON WEEKEND) Tobacco Use: No (quit 2 months ago) Substance Use: No Allergies-Medications (Allergen,Severity, Reaction): Coded Allergies: No Known Allergies (Unverified Allergy, Unknown, 09/13/17) Reported Meds & Prescriptions Reported Meds & Active Scripts Active Review of Systems Except as stated in HPI: all other systems reviewed are Neg Physical Exam Narrative GENERAL: Well-nourished, well-developed male patient; in acute respiratory distress, patient speaking in full sentences with shortness of breath noted SKIN: Warm and dry. HEAD: Atraumatic. Normocephalic. EYES: Pupils equal and round. No scleral icterus. No injection or drainage. ENT: Mucosa pink and moist. Airway patent. EARS: Bilateral pinnae and external canals appear within normal limits. NECK: Trachea midline. No lymphadenopathy. CARDIOVASCULAR: Tachycardic rate and rhythm. No murmur appreciated. RESPIRATORY: Lungs diminished throughout with some wheezing auscultated to the left upper lung. Breath sounds equal bilaterally. Tachypnea and accessory muscle use noted. No Audible wheezing noted. GASTROINTESTINAL: Rounded. MUSCULOSKELETAL: No obvious deformities. No clubbing. No cyanosis. No edema. NEUROLOGICAL: Awake and alert. Oriented 3. No obvious cranial nerve deficits. Motor grossly within normal limits. Normal speech. Moves all extremities. 5/5 strength to all extremities. PSYCHIATRIC: Appropriate mood and affect; insight and judgment normal. Data Data Last Documented VS Vital Signs Date Time Temp Pulse Resp B/P (MAP) Pulse Ox O2 Delivery O2 Flow Rate FiO2 09/13/17 21:07 125 22 128/80 (96) 94 Nasal Cannula 3.00 09/13/17 19:29 99.1 Orders Orders Albuterol-Ipratropium Neb (Duoneb Neb) (09/13/17 18:45) Methylprednisolone So Succ Inj (Solumedr (09/13/17 18:45) Arterial Blood Gas (Abg) (09/13/17 19:27) Chest, Single Ap (09/13/17 19:27) Basic Metabolic Panel (Bmp) (09/13/17 20:13) Complete Blood Count With Diff (09/13/17 20:13) Iv Access Insert/Monitor (09/13/17 20:13) Sodium Chloride 0.9% Flush (Ns Flush) (09/13/17 20:15) Lactic Acid Sepsis Protocol (09/13/17 20:30) Prothrombin Time / Inr (Pt) (09/13/17 20:30) Act Partial Throm Time (Ptt) (09/13/17 20:30) Urinalysis - C+S If Indicated (09/13/17 20:30) Blood Culture (09/13/17 20:30) Albuterol-Ipratropium Neb (Duoneb Neb) (09/13/17 20:30) Sodium Chlor 0.9% 1000 Ml Inj (Ns 1000 M (09/13/17 20:30) Place In Observation (09/13/17 ) Vital Signs (Adult) Q4H (09/13/17 21:25) Activity Oob With Assistance (09/13/17 21:25) [place]man / Telemetry .CONTINUOUS (09/13/17 21:25) Intake + Output MAYI.QSHIFT (09/13/17 21:25) Diet Heart Healthy (09/14/17 Breakfast) Sodium Chloride 0.9% Flush (Ns Flush) (09/13/17 21:30) Sodium Chloride 0.9% Flush (Ns Flush) (09/14/17 09:00) Basic Metabolic Panel (Bmp) (09/14/17 06:00) Complete Blood Count With Diff (09/14/17 06:00) Resp Oxygen Ashish C Titrat 1-4 L (09/13/17 ) Pt Request For Service (09/13/17 21:25) Case Management Consult (09/13/17 21:25) Naloxone Inj (Narcan Inj) (09/13/17 21:30) Ipratropium Neb (Atrovent Neb) (09/13/17 22:00) Ipratropium Neb (Atrovent Neb) (09/13/17 21:30) Admit Order (Ed Use Only) (09/13/17 21:43) Labs Laboratory Tests Test 09/13/17 19:40 09/13/17 20:25 09/13/17 20:30 09/13/17 20:45 Blood Gas Puncture Site RT BRACHIAL Blood Gas Patient Temperature 98.6 Blood Gas HCO3 26 mmol/L Blood Gas Base Excess 2.0 mmol/L Blood Gas Oxygen Saturation 89 % Arterial Blood pH 7.46 Arterial Blood Partial Pressure CO2 37 mmHG Arterial Blood Partial Pressure O2 58 mmHG Arterial Blood Oxygen Content 20.6 Vol % Arterial Blood Carboxyhemoglobin 1.5 % Arterial Blood Methemoglobin 1.2 % Blood Gas Hemoglobin 16.6 G/DL Oxygen Delivery Device ROOM AIR Blood Gas Inspired Oxygen 21 % White Blood Count 18.8 TH/MM3 Red Blood Count 5.57 MIL/MM3 Hemoglobin 16.1 GM/DL Hematocrit 47.7 % Mean Corpuscular Volume 85.6 FL Mean Corpuscular Hemoglobin 28.9 PG Mean Corpuscular Hemoglobin Concent 33.7 % Red Cell Distribution Width 14.7 % Platelet Count 401 TH/MM3 Mean Platelet Volume 7.4 FL Neutrophils (%) (Auto) 78.2 % Lymphocytes (%) (Auto) 7.9 % Monocytes (%) (Auto) 6.9 % Eosinophils (%) (Auto) 5.2 % Basophils (%) (Auto) 1.8 % Neutrophils # (Auto) 14.7 TH/MM3 Lymphocytes # (Auto) 1.5 TH/MM3 Monocytes # (Auto) 1.3 TH/MM3 Eosinophils # (Auto) 1.0 TH/MM3 Basophils # (Auto) 0.3 TH/MM3 CBC Comment DIFF FINAL Differential Comment Lactic Acid Level 0.8 mmol/L Prothrombin Time 10.7 SEC Prothromb Time International Ratio 1.0 RATIO Activated Partial Thromboplast Time 31.7 SEC Blood Urea Nitrogen 13 MG/DL Creatinine 0.74 MG/DL Random Glucose 120 MG/DL Calcium Level 8.7 MG/DL Sodium Level 138 MEQ/L Potassium Level 4.0 MEQ/L Chloride Level 105 MEQ/L Carbon Dioxide Level 26.8 MEQ/L Anion Gap 6 MEQ/L Estimat Glomerular Filtration Rate 112 ML/MIN [facility] Medical Decision Making Medical Screen Exam Complete: Yes Emergency Medical Condition: Yes Medical Record Reviewed: Yes Differential Diagnosis COPD exacerbation, respiratory distress, pneumonia, PE Narrative Course 47-year-old male in respiratory distress with tachypnea and work of breathing. Respiratory therapist called stat to bedside. DuoNeb 3 administered. Solu- Medrol 125 mg IM ordered. History of COPD. the patient was seen here on August 26 and had CTA which ruled out PE; cardiac workup with troponin less than 0.02 and BNP 13. 1928: Patient still having work of breathing, diminished lung sounds, purse lipped breathing, and oxygen saturation 88-90% on room air after [address] White evaluated the patient and recommended ABG on room air and chest x-ray. Orders entered. Dr. White discussed admission and the patient says he will refuse admission. At this time, secondary to patient refusing admission, ordering IV and labs has been put on hold. 1958: Patient placed on 3 L nasal cannula secondary to ABG pH 7.45, pCO2 36.7, pO2 57.6; FO2 88%. Dr. White wants to have the patient admitted. I discussed this with the patient and the need to start an IV and draw labs and the patient is continuing to refuse admission. I discussed risks of leaving AMA and the patient asked for some time to make some phone calls. 2013: Patient has agreed to admission. IV site obtained. Patient meets sepsis protocol. CBC, BMP, lactic acid, blood cultures, normal saline bolus, urinalysis ordered. DuoNeb 1 ordered. 2033: Chest x-ray no acute disease. 2044: Call placed to [facility] for patient admission. 2099: Dr. Sullivan assumed patient care at this time. See his note for final patient disposition. Physician Communication Physician Communication [facility] Diagnosis Primary Impression: COPD with acute exacerbation Additional Impression: Hypoxia Admitting Information Admitting Physician Requests: Admit Scripts Prednisone (21) 5 mg tab Dose Pack (Prednisone (21) 5 mg tab Dose Pack) 5 Mg Dspk 5 MG PO DIRECTED for Inflammation, #1 DSPK 0 Refills Prov: Chun Lam MD 09/14/17 Ipratropium Neb (Ipratropium Neb) 0.5 Mg/2.5 Ml Amp 0.5 MG NEB Q2HR NEB Y for wheezing for 30 Days, ML Prov: Chun Lam MD 09/14/17 Fluticasone-Vilanterol Inh (Breo Ellipta Inh) 100-25 Mcg/Act Inh 1 PUFF INH DAILY for copd for 30 Days, #1 INHALER 3 Refills Use daily at the same time. Prov: Chun Lam MD 09/14/17 Pam Nunez Sep 13, 2017 19:06
[2017-09-13 20:10] LABS: BLOOD GAS CARBOXYHEMOGLOBIN 1.5 % (0-4); BLOOD GAS HCO3 26 mmol/L (22-26); BLOOD GAS METHEMOGLOBIN 1.2 % (0-2); BLOOD GAS O2 HGB SATURATION 89 % (90-100); BLOOD GAS OXYGEN CONTENT 20.6 Vol % (12.0-20.0); BLOOD GAS PCO2 37 mmHG (38-42); BLOOD GAS PO2 58 mmHG (61-120); BLOOD GAS TOTAL HGB 16.6 G/DL (12.0-16.0); TEMP CORR TO 98.6
[2017-09-13 20:11] LABS: CRITICAL VALUE YES; DRAW SITE RT BRACHIAL; FIO2 21 %; NUMBER OF ARTERIAL PUNCTURES 1; OXYGEN DEVICE ROOM AIR; STAT YES
[2017-09-13] MEDS ORDERED: SODIUM CHLORIDE 0.9% FLUSH 10 ML FLUSH IV FLUSH PRN ×2 (20:15→21:30)
[2017-09-13] MEDS ORDERED: RESP: ALBUTEROL 2.5 MG/IPRATROPIUM 0.5 MG NEB (SCH) INH ONE (20:30)
[2017-09-13] MEDS ORDERED: SODIUM CHLOR 0.9% 1000 ML INJ 1,000 ML IV SCH (20:30)
--- NOTE | 2017-09-13 20:32 | RADRPT ---
EXAM DATE/TIME: 09/13/2017 19:39 [place] COMPARISON: CHEST SINGLE AP, August 26, 2017, 6:24. INDICATIONS : Short of breath and cough since this morning. MEDICAL HISTORY : None. SURGICAL HISTORY : None. ENCOUNTER: Initial ACUITY: 1 day PAIN SCORE: 2/10 LOCATION: Bilateral chest FINDINGS: A single view of the chest demonstrates the lungs to be symmetrically aerated without evidence of mas s, infiltrate or effusion. The cardiomediastinal contours are unremarkable. Osseous structures are intact. CONCLUSION: No acute disease. Enoc Mcnally Jr., MD on September 13, 2017 at 20:28 Board Certified Radiologist. This report was verified electronically.
[2017-09-13 20:57] LABS: AUTOMATED NEUTROPHIL # 14.7 TH/MM3 (1.8-7.7); BASOPHIL # 0.3 TH/MM3 (0-0.2); BASOPHIL % 1.8 % (0.0-2.0); EOSINOPHIL % 5.2 % (0.0-4.0); HEMATOCRIT 47.7 % (39.0-51.0); HEMO FLAGS DIFF FINAL; LYMPH % 7.9 % (9.0-44.0); LYMPHOCYTE # 1.5 TH/MM3 (1.0-4.8); MEAN CELL VOLUME 85.6 FL (80.0-100.0); MEAN CORPUSCULAR HEMOGLOBIN 28.9 PG (27.0-34.0); MEAN CORPUSCULAR HGB CONC 33.7 % (32.0-36.0); MONO % 6.9 % (0.0-8.0); NEUT % 78.2 % (16.0-70.0); PLATELET COUNT 401 TH/MM3 (150-450); RED BLOOD COUNT 5.57 MIL/MM3 (4.50-5.90); RED CELL DISTRIBUTION WIDTH 14.7 % (11.6-17.2); WHITE BLOOD COUNT 18.8 TH/MM3 (4.0-11.0)
[2017-09-13 21:03] LABS: BICARBONATE 26.8 MEQ/L (21.0-32.0)
[2017-09-13 21:06] LABS: APTT (PATIENT) 31.7 SEC (24.3-30.1); PROTHROMBIN TIME - PATIENT 10.7 SEC (9.8-11.6)
[2017-09-13] MEDS ORDERED: RESP: IPRATROPIUM 0.5 MG/2.5 ML NEB NEB PRN (21:30)
[2017-09-13] MEDS ORDERED: NALOXONE HCL 0.4 MG/ML AMP IV PUSH PRN (21:30)
--- NOTE | 2017-09-13 21:37 | PD ---
Physical Exam Time Seen by Provider: 19:26 Narrative The patient was transferred to md by the physician fish hatchery assistant to admit the patient. The patient has hypoxemia. Initially he refused admission but now he agrees to admission. Data Data Last Documented VS Vital Signs Date Time Temp Pulse Resp B/P (MAP) Pulse Ox O2 Delivery O2 Flow Rate FiO2 09/13/17 21:07 125 22 128/80 (96) 94 Nasal Cannula 3.00 09/13/17 19:29 99.1 Orders Orders Albuterol-Ipratropium Neb (Duoneb Neb) (09/13/17 18:45) Methylprednisolone So Succ Inj (Solumedr (09/13/17 18:45) Arterial Blood Gas (Abg) (09/13/17 19:27) Chest, Single Ap (09/13/17 19:27) Basic Metabolic Panel (Bmp) (09/13/17 20:13) Complete Blood Count With Diff (09/13/17 20:13) Iv Access Insert/Monitor (09/13/17 20:13) Sodium Chloride 0.9% Flush (Ns Flush) (09/13/17 20:15) Lactic Acid Sepsis Protocol (09/13/17 20:30) Prothrombin Time / Inr (Pt) (09/13/17 20:30) Act Partial Throm Time (Ptt) (09/13/17 20:30) Urinalysis - C+S If Indicated (09/13/17 20:30) Blood Culture (09/13/17 20:30) Albuterol-Ipratropium Neb (Duoneb Neb) (09/13/17 20:30) Sodium Chlor 0.9% 1000 Ml Inj (Ns 1000 M (09/13/17 20:30) Place In Observation (09/13/17 ) Vital Signs (Adult) Q4H (09/13/17 21:25) Activity Oob With Assistance (09/13/17 21:25) P[employer] Hat [employer]ining / Telemetry .CONTINUOUS (09/13/17 21:25) Intake + Output MAYI.QSHIFT (09/13/17 21:25) Diet Heart Healthy (09/14/17 Breakfast) Sodium Chloride 0.9% Flush (Ns Flush) (09/13/17 21:30) Sodium Chloride 0.9% Flush (Ns Flush) (09/14/17 09:00) Basic Metabolic Panel (Bmp) (09/14/17 06:00) Complete Blood Count With Diff (09/14/17 06:00) Resp Oxygen Ashish C Titrat 1-4 L (09/13/17 ) Pt Request For Service (09/13/17 21:25) Case Management Consult (09/13/17 21:25) Naloxone Inj (Narcan Inj) (09/13/17 21:30) Ipratropium Neb (Atrovent Neb) (09/13/17 22:00) Ipratropium Neb (Atrovent Neb) (09/13/17 21:30) Labs Laboratory Tests Test 09/13/17 19:40 09/13/17 20:25 09/13/17 20:30 09/13/17 20:45 Blood Gas Puncture Site RT BRACHIAL Blood Gas Patient Temperature 98.6 Blood Gas HCO3 26 mmol/L Blood Gas Base Excess 2.0 mmol/L Blood Gas Oxygen Saturation 89 % Arterial Blood pH 7.46 Arterial Blood Partial Pressure CO2 37 mmHG Arterial Blood Partial Pressure O2 58 mmHG Arterial Blood Oxygen Content 20.6 Vol % Arterial Blood Carboxyhemoglobin 1.5 % Arterial Blood Methemoglobin 1.2 % Blood Gas Hemoglobin 16.6 G/DL Oxygen Delivery Device ROOM AIR Blood Gas Inspired Oxygen 21 % White Blood Count 18.8 TH/MM3 Red Blood Count 5.57 MIL/MM3 Hemoglobin 16.1 GM/DL Hematocrit 47.7 % Mean Corpuscular Volume 85.6 FL Mean Corpuscular Hemoglobin 28.9 PG Mean Corpuscular Hemoglobin Concent 33.7 % Red Cell Distribution Width 14.7 % Platelet Count 401 TH/MM3 Mean Platelet Volume 7.4 FL Neutrophils (%) (Auto) 78.2 % Lymphocytes (%) (Auto) 7.9 % Monocytes (%) (Auto) 6.9 % Eosinophils (%) (Auto) 5.2 % Basophils (%) (Auto) 1.8 % Neutrophils # (Auto) 14.7 TH/MM3 Lymphocytes # (Auto) 1.5 TH/MM3 Monocytes # (Auto) 1.3 TH/MM3 Eosinophils # (Auto) 1.0 TH/MM3 Basophils # (Auto) 0.3 TH/MM3 CBC Comment DIFF FINAL Differential Comment Lactic Acid Level 0.8 mmol/L Prothrombin Time 10.7 SEC Prothromb Time International Ratio 1.0 RATIO Activated Partial Thromboplast Time 31.7 SEC Blood Urea Nitrogen 13 MG/DL Creatinine 0.74 MG/DL Random Glucose 120 MG/DL Calcium Level 8.7 MG/DL Sodium Level 138 MEQ/L Potassium Level 4.0 MEQ/L Chloride Level 105 MEQ/L Carbon Dioxide Level 26.8 MEQ/L Anion Gap 6 MEQ/L Estimat Glomerular Filtration Rate 112 ML/MIN [facility] Medical Record Reviewed: Yes Supervised Visit with JORGE: Yes Interpretation(s) The blood gases show pH 7.46, CO2 37, PO2 58 with O2 sat 88.6%. The chest x- ray shows no acute disease. The white count is 18,800. Differential Diagnosis Sepsis, pneumonia, hypoxemia, COPD with acute exacerbation Narrative Course The patient has COPD with acute exacerbation/hypoxemia. Plan: The patient be admitted to Dr. Armendariz of the [facility] service. Diagnosis Primary Impression: COPD with acute exacerbation Additional Impression: Hypoxia Pedrito White MD Sep 13, 2017 21:37
[2017-09-13] MEDS: RESP: IPRATROPIUM 0.5 MG/2.5 ML NEB NEB SCH (22:28)
[2017-09-14] MEDS: RESP: IPRATROPIUM 0.5 MG/2.5 ML NEB NEB SCH ×2 (03:27→09:20)
[2017-09-14 04:00] VITALS: BP 143/75; PULSE 97; RESP 20; TEMP 97.6; O2SAT 93
[2017-09-14 06:32] LABS: AUTOMATED NEUTROPHIL # 12.2 TH/MM3 (1.8-7.7); BASOPHIL % 0.3 % (0.0-2.0); EOSINOPHIL % 0.1 % (0.0-4.0); HEMATOCRIT 46.5 % (39.0-51.0); LYMPH % 6.2 % (9.0-44.0); LYMPHOCYTE # 0.8 TH/MM3 (1.0-4.8); MEAN CELL VOLUME 85.6 FL (80.0-100.0); MEAN CORPUSCULAR HEMOGLOBIN 28.6 PG (27.0-34.0); MEAN CORPUSCULAR HGB CONC 33.4 % (32.0-36.0); MONO % 1.3 % (0.0-8.0); NEUT % 92.1 % (16.0-70.0); PLATELET COUNT 420 TH/MM3 (150-450); RED BLOOD COUNT 5.44 MIL/MM3 (4.50-5.90); RED CELL DISTRIBUTION WIDTH 14.8 % (11.6-17.2); WHITE BLOOD COUNT 13.2 TH/MM3 (4.0-11.0)
[2017-09-14 06:46] LABS: BICARBONATE 25.8 MEQ/L (21.0-32.0); HEMO FLAGS DIFF FINAL
[2017-09-14 08:00] VITALS: BP 129/82; PULSE 103; RESP 24; TEMP 97.3; O2SAT 91
[2017-09-14] MEDS ORDERED: SODIUM CHLORIDE 0.9% FLUSH 10 ML FLUSH IV FLUSH SCH (09:00)
[2017-09-14 09:23] VITALS: O2SAT 93
[2017-09-14 09:23] LABS: BLOOD, URINE NEG (NEG); GLUCOSE,URINE 250 mg/dL (NEG); KETONE, URINE NEG (NEG); NITRITE,URINE NEG (NEG)
[2017-09-14 09:48] LABS: METHOD OF COLLECTION CLEAN CATCH; RBC, URINE 0-3 /hpf (0-3); SQUAMOUS EPITHELIAL CELL URINE 0-5 /hpf (0-5); URINE COLOR YELLOW (YELLW/STRAW)
[2017-09-14 09:49] LABS: COMMENT (UR) CULT NOT INDICATED; CULTURE IF INDICATED CULT NOT INDICATED
[2017-09-14] MEDS ORDERED: PRED5PAK PO (10:21)
[2017-09-14] MEDS ORDERED: IPRA0.02 NEB (10:21)
[2017-09-14] MEDS ORDERED: FLUT1INH INH (10:21)
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
[2017-09-14] MEDS ORDERED: predniSONE 10 MG TAB PO ONE (11:00)
== END 2017-09-14 11:25 | disposition home or self-care (01) ==
LOC: PHEFT 18:37 → PHEDA 21:44 → PH3A 22:41
PROVIDERS: ADMIT Internal Medicine; ATTEND Internal Medicine
DX: J44.1 Chronic obstructive pulmonary disease with (acute) exacerbation (principal); R09.02 Hypoxemia; Z86.711 Personal history of pulmonary embolism; Z87.891 Personal history of nicotine dependence; Z79.01 Long term (current) use of anticoagulants; F41.9 Anxiety disorder, unspecified; R00.0 Tachycardia, unspecified; Z93.3 Colostomy status; K57.92 Diverticulitis of intestine, part unspecified, without perforation or abscess without bleeding; K21.9 Gastro-esophageal reflux disease without esophagitis; R06.03 Acute respiratory distress; D72.829 Elevated white blood cell count, unspecified; R05 Cough
CPT/HCPCS: 36600; 71010; 80048; 81001; 82805; 83605; 85025; 85610; 85730; 87040; 94640; 94664; 96361; 96374; 97162; 99285; G0378; G8987; G8988; J2930; J7030; J7512; J7644

== ENCOUNTER 2018-03-04 01:34 | Emergency (ER) | payer SELFPAY ==
[~2018-03-04] VITALS: Ht 185.4 cm; Wt 100.4 kg
[~2018-03-04 01:34] MED LIST changes: -ALBU0.08 NEB; +IPRA0.02 NEB; -PRED10 PO; +PRED5PAK PO; -ZITHTAB PO
[2018-03-04 01:40] VITALS: BP 135/82; PULSE 103; TEMP 97.5; O2SAT 93
[2018-03-04 01:45] VITALS: BP 114/81; PULSE 97; RESP 20; O2SAT 95
[2018-03-04] MEDS ORDERED: SODIUM CHLORIDE 0.9% FLUSH 10 ML FLUSH IVF PRN (02:00)
[2018-03-04] MEDS ORDERED: methylPREDNISolone SOD SUCC 125 MG/2 ML VIAL IV PUSH ONE (02:00)
[2018-03-04] MEDS: RESP: ALBUTEROL 2.5 MG/IPRATROPIUM 0.5 MG NEB (SCH) INH ×3 (02:08→02:29)
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
[2018-03-04 02:23] VITALS: RESP 22; O2SAT 98
[2018-03-04] MEDS ORDERED: ALBU0.08 NEB (02:25)
[2018-03-04] MEDS ORDERED: FLUT1INH INH (02:25)
[2018-03-04] MEDS ORDERED: PRED50 PO (02:25)
[2018-03-04] MEDS ORDERED: IPRASOL INH (02:25)
[2018-03-04 02:29] VITALS: O2SAT 98
[2018-03-04 02:47] VITALS: BP 127/88
== END 2018-03-04 02:53 | disposition home or self-care (01) ==
LOC: PHED 01:34
DX: J44.1 Chronic obstructive pulmonary disease with (acute) exacerbation (principal); F41.9 Anxiety disorder, unspecified; K21.9 Gastro-esophageal reflux disease without esophagitis; Z86.718 Personal history of other venous thrombosis and embolism; Z87.891 Personal history of nicotine dependence
CPT/HCPCS: 87804; 94640; 94664; 96374; 99284; J2930

== ENCOUNTER 2018-03-27 10:27 | Emergency (ER) | payer BC ==
[~2018-03-27] VITALS: Ht 188 cm; Wt 99.8 kg
[~2018-03-27 10:27] MED LIST changes: +ALBU0.08 NEB; +IPRASOL INH; +PRED50 PO
[2018-03-27 10:33] VITALS: BP 116/83; PULSE 116; RESP 20; TEMP 98.2; O2SAT 93
[2018-03-27] MEDS ORDERED: VENTAER INH (11:24)
[2018-03-27 11:25] VITALS: BP 135/79; PULSE 108; RESP 20; O2SAT 96
[2018-03-27] MEDS ORDERED: RESP: ALBUTEROL 2.5 MG/IPRATROPIUM 0.5 MG NEB (SCH) INH ONE (12:00)
[2018-03-27] MEDS ORDERED: predniSONE 50 MG TAB PO ONE (12:00)
--- NOTE | 2018-03-27 12:16 | PD ---
HPI Chief Complaint: Respiratory Symptoms Time Seen by Provider: 11:55 Travel History International Travel<30 days: No Contact w/Intl Traveler<30days: No Traveled to known affect area: No History of Present Illness HPI 47-year-old male with a history of frequent COPD exacerbations presents emergency department for evaluation of increased shortness of breath and dry, hacking cough that has been present since this weekend. Says that he ran out of his albuterol nebulizer medication Tuesday and began having increased shortness of breath over the weekend. Says he has a history of frequent COPD exacerbations decided to come in today to prevent worsening of his symptoms. He denies any fevers or chills. He has not seen a ophthalmic technician apprentice with primary care physician regarding his symptoms. He denies fever, chills, chest pain, back pain, leg swelling. Says he would like a refill of his medication, albuterol. PFSH Past Medical History Hx Anticoagulant Therapy: Yes Asthma: No Anxiety: Yes Heart Rhythm Problems: No Cancer: No Cardiovascular Problems: Yes High Cholesterol: No Chest Pain: No Congestive Heart Failure: No COPD: Yes Coronary Artery Disease: No Diabetes: No Diminished Hearing: No Diverticulitis: Yes Deep Vein Thrombosis: Yes (PE-FILTER UPPER LEG ) Endocrine: No Gastrointestinal Disorders: Yes (COLOSTOMY MAY 2016, DIVERTICULITIS, SEPSIS) GERD: Yes Genitourinary: No Hiatal Hernia: No Hypertension: No Immune Disorder: No Implanted Vascular Access Dvce: Yes (FILTER) Musculoskeletal: No Neurologic: No Psychiatric: No Reproductive: No Respiratory: Yes (copd) Immunizations Current: Yes Sleep Apnea: No Ulcer: No Tetanus Vaccination: Unknown Influenza Vaccination: Yes Past Surgical History Abdominal Surgery: Yes (diverticulitis, colostomy and reversible, appendectomy hernia) AICD: No Appendectomy: Yes Arteriovenous Shunt: No Body Medical Devices: greenfiled filter Cardiac Surgery: No Ear Surgery: No Endocrine Surgery: No Eye Surgery: No Genitourinary Surgery: No Gynecologic Surgery: No Insulin Pump: No Joint Replacement: No Neurologic Surgery: No Oral Surgery: No Pacemaker: No Thoracic Surgery: No Other Surgery: Yes (colostomy reversal) Social History Alcohol Use: Yes (OCCASIONAL ON WEEKEND) Tobacco Use: Yes (1 pk) Substance Use: No Allergies-Medications (Allergen,Severity, Reaction): Coded Allergies: No Known Allergies (Unverified Allergy, Unknown, 03/27/18) Reported Meds & Prescriptions Reported Meds & Active Scripts Active Albuterol Neb (Albuterol Sulfate) 2.5 Mg/3 Ml Neb 2.5 Mg NEB Q4HR NEB PRN Medrol Dosepak (Methylprednisolone) 4 Mg Dspk 4 Mg PO DIRECTED Per Pharmacist direction Albuterol Neb (Albuterol Sulfate) 2.5 Mg/3 Ml Neb 2.5 Mg NEB Q4HR NEB While awake Ipratropium Neb (Ipratropium [place]) 0.5 Mg/2.5 Ml Amp 0.5 Mg NEB Q2HR NEB PRN 30 Days Breo Ellipta Inh (Fluticasone/Vilanterol) 100-25 Mcg/Act Inh 1 Puff INH DAILY 30 Days Use daily at the same time. Reported Ventolin Hfa 18 GM Inh (Albuterol Sulfate) 90 Mcg/Act Aer 1 Puff INH Q4H PRN Review of Systems Except as stated in HPI: all other systems reviewed are Neg Physical Exam Narrative GENERAL: Well-nourished, well-developed patient, in NAD SKIN: Focused skin assessment warm/dry. No rashes or lesions. HEAD: Normocephalic. Atraumatic. EYES: No scleral icterus. No injection or drainage. PERRLA, EOMI THROAT: No pharyngeal injection, exudates, or tonsillar hypertrophy. Airway is patent. NECK: Supple, trachea midline. No JVD or lymphadenopathy. No meningismus. CARDIOVASCULAR: Regular rate and rhythm without murmurs, gallops, or rubs. RESPIRATORY: Breath sounds equal bilaterally. No accessory muscle use. No rales or rhonchi. Slight wheeze present left lung peña MUSCULOSKELETAL: No cyanosis, or edema. BACK: Nontender without obvious deformity. No CVA tenderness. Data Data Last Documented VS Vital Signs Date Time Temp Pulse Resp B/P (MAP) Pulse Ox O2 Delivery O2 Flow Rate FiO2 03/27/18 12:43 98 20 135/99 (111) 96 03/27/18 11:25 Room Air 03/27/18 10:33 98.2 Orders Orders Prednisone (Deltasone) (03/27/18 12:00) Albuterol-Ipratropium Neb (Duoneb Neb) (03/27/18 12:00) Ed Discharge Order (03/27/18 12:35) MDM Medical Decision Making Medical Screen Exam Complete: Yes Emergency Medical Condition: Yes Differential Diagnosis Pneumonia, COPD exacerbation, upper respiratory infection, viral Narrative Course 47 male presents emergency department for an apparent COPD exacerbation that started this weekend. Patient states he ran out of his albuterol nebulizer medication and started developing symptoms this weekend. Says that he wants to prevent any further worsening of his symptoms are decided to come to emergency department today. Vital signs are stable. His exam findings demonstrate slight wheeze on left lung peña without rales or rhonchi. Review review of the EMR demonstrates patient has had multiple exacerbations this year alone. He does not follow pulmonology or primary care physician regarding his symptoms. Says that he runs out of his medications because he does not follow primary care physician. Prednisone and DuoNeb administered emergency room. Patient will be discharged with Medrol Dosepak and albuterol nebulized medication. Strongly advised him to follow with ophthalmic technician apprentice to prevent further complications. The patient does continue to smoke and he is aware that this will worsen his symptoms. Diagnosis Primary Impression: COPD with acute exacerbation Referrals: Primary Care Physician Lens Blocker Additional Instructions: It is imperative that he follow-up with a primary care physician for treatment and evaluation of irregular care. Consider follow-up with a ophthalmic technician apprentice to better maintain your COPD. Scripts Albuterol Neb (Albuterol Neb) 2.5 Mg/3 Ml Neb 2.5 MG NEB Q4HR NEB Y for SHORTNESS OF BREATH, #60 NEBULE 0 Refills Prov: Aki Finley MD 03/27/18 Methylprednisolone Dosepak (Medrol Dosepak) 4 Mg Dspk 4 MG PO DIRECTED, #1 DSPK 0 Refills Per Pharmacist direction Prov: Aki Finley MD 03/27/18 Disposition: 01 DISCHARGE HOME Condition: Stable Camryn Hawkins March 27, 2018 12:16
[2018-03-27] MEDS ORDERED: MEDR4PAK PO (12:32)
[2018-03-27] MEDS ORDERED: ALBU0.08 NEB (12:32)
[2018-03-27 12:43] VITALS: BP 135/99
--- NOTE | 2018-03-28 17:05 | EKG ---
Date Performed: 03/27/2018 Time Performed: 10:50:39 PTAGE: 47 years EKG: SINUS TACHYCARDIA POSSIBLE RIGHT VENTRICULAR CONDUCTION DELAY ABNORMAL RHYTHM ECG PREVIOUS TRACING : 01/29/2017 09.32 Since the previous tracing, no significant change noted DOCTOR: Hollis Sommers Interpretating Date/Time 03/28/2018 17:04:09
== END 2018-03-27 12:44 | disposition home or self-care (01) ==
LOC: PHEFT 10:27
DX: J44.1 Chronic obstructive pulmonary disease with (acute) exacerbation (principal); F17.210 Nicotine dependence, cigarettes, uncomplicated; R94.31 Abnormal electrocardiogram [ECG] [EKG]; F41.9 Anxiety disorder, unspecified; K21.9 Gastro-esophageal reflux disease without esophagitis; Z86.718 Personal history of other venous thrombosis and embolism
CPT/HCPCS: 93005; 94664; 99283; J7512

== ENCOUNTER 2018-04-26 18:19 | Emergency (ER) | payer BC ==
[~2018-04-26] VITALS: Ht 185.4 cm; Wt 101.5 kg
[~2018-04-26 18:19] MED LIST changes: -IPRASOL INH; +MEDR4PAK PO; -PRED50 PO; -PRED5PAK PO; +VENTAER INH
[2018-04-26 18:25] VITALS: BP 116/94; PULSE 132; RESP 18; TEMP 97.8; O2SAT 88; O2SAT 89
--- NOTE | 2018-04-26 18:29 | PD ---
HPI Chief Complaint: Respiratory Symptoms Time Seen by Provider: 18:24 Travel History International Travel<30 days: No Contact w/Intl Traveler<30days: No Traveled to known affect area: No History of Present Illness HPI The patient is a 47-year-old male who presents to the emergency department for shortness of breath and chest tightness. The patient states his symptoms started earlier today while at work. The patient states there is a fire pit and there was wind blowing debris his way. The patient does have a history of COPD with previous exacerbations. The patient does note he has been wheezing, use of breathing treatments at home with mild relief, however, he persisted with wheezing, coughing, and shortness of breath. He does complain of mild chest tightness which he attributes to his COPD. He denies any history of coronary artery disease, does have a remote history of possible DVT in the right leg with filter placement. He is not currently on any anticoagulation. Symptoms are moderate. He denies any new fever, chills, or sweats. The patient did recently find a new primary physician, but does not have an appointment until next month with [facility]. PFSH Past Medical History Hx Anticoagulant Therapy: Yes Asthma: No Anxiety: Yes Heart Rhythm Problems: No Cancer: No Cardiovascular Problems: Yes High Cholesterol: No Chest Pain: No Congestive Heart Failure: No COPD: Yes Coronary Artery Disease: No Diabetes: No Diminished Hearing: No Diverticulitis: Yes Deep Vein Thrombosis: Yes (PE-FILTER UPPER LEG ) Endocrine: No Gastrointestinal Disorders: Yes (COLOSTOMY MAY 2016, DIVERTICULITIS, SEPSIS) GERD: Yes Genitourinary: No Hiatal Hernia: No Hypertension: No Immune Disorder: No Implanted Vascular Access Dvce: Yes (FILTER) Musculoskeletal: No Neurologic: No Psychiatric: No Reproductive: No Respiratory: Yes (copd) Immunizations Current: Yes Sleep Apnea: No Ulcer: No Past Surgical History Abdominal Surgery: Yes (diverticulitis, colostomy and reversible, appendectomy hernia) AICD: No Appendectomy: Yes Arteriovenous Shunt: No Body Medical Devices: greenfiled filter Cardiac Surgery: No Ear Surgery: No Endocrine Surgery: No Eye Surgery: No Genitourinary Surgery: No Gynecologic Surgery: No Insulin Pump: No Joint Replacement: No Neurologic Surgery: No Oral Surgery: No Pacemaker: No Thoracic Surgery: No Other Surgery: Yes (colostomy reversal) Social History Alcohol Use: Yes (OCCASIONAL ON WEEKEND) Tobacco Use: Yes (1 pk) Substance Use: No Allergies-Medications (Allergen,Severity, Reaction): Coded Allergies: No Known Allergies (Unverified Allergy, Unknown, 03/27/18) Reported Meds & Prescriptions Reported Meds & Active Scripts Active Albuterol Neb (Albuterol Sulfate) 2.5 Mg/3 Ml Neb 2.5 Mg NEB Q4HR NEB While awake Ipratropium Neb (Ipratropium [place]) 0.5 Mg/2.5 Ml Amp 0.5 Mg NEB Q2HR NEB PRN 30 Days Breo Ellipta Inh (Fluticasone/Vilanterol) 100-25 Mcg/Act Inh 1 Puff INH DAILY 30 Days Use daily at the same time. Reported Ventolin Hfa 18 GM Inh (Albuterol Sulfate) 90 Mcg/Act Aer 1 Puff INH Q4H PRN Review of Systems Except as stated in HPI: all other systems reviewed are Neg General / Constitutional: No: Fever Cardiovascular: Positive: Chest Pain or Discomfort (Tightness) Respiratory: Positive: Cough, Shortness of Breath, Wheezing Gastrointestinal: No: Nausea, Vomiting, Abdominal Pain Musculoskeletal: No: Edema Neurologic: No: Dizziness Physical Exam Narrative GENERAL: Awake, alert, pleasant 47-year-old male who appears his stated age and is in mild respiratory distress SKIN: Focused skin assessment warm/dry. HEAD: Atraumatic. Normocephalic. EYES: Pupils equal and round. No scleral icterus. No injection or drainage. ENT: No nasal bleeding or discharge. Mucous membranes pink and moist. NECK: Trachea midline. No JVD. CARDIOVASCULAR: Regular, tachycardic with a heart rate in the 120s. RESPIRATORY: Mild tachypnea with a respiratory rate of 24. Diminished breath sounds with tight expiratory wheezing noted. GASTROINTESTINAL: Abdomen soft, non-tender, nondistended. Well-healed midline abdominal scar. MUSCULOSKELETAL: No obvious deformities. No clubbing. No cyanosis. No edema. NEUROLOGICAL: Awake and alert. No obvious cranial nerve deficits. Motor grossly within normal limits. Normal speech. PSYCHIATRIC: Appropriate mood and affect; insight and judgment normal. Data Data Last Documented VS Vital Signs Date Time Temp Pulse Resp B/P (MAP) Pulse Ox O2 Delivery O2 Flow Rate FiO2 04/26/18 19:05 23 95 Nasal Cannula 4.00 04/26/18 18:25 97.8 132 116/94 (101) Orders Orders Complete Blood Count With Diff (04/26/18 18:) Comprehensive Metabolic Panel (04/26/18:) B-Type Natriuretic Peptide (04/26/18:) Magnesium (Mg) (04/26/18 18:24) Ckmb (Isoenzyme) Profile (04/26/18:) Troponin I (04/26/18:) Iv Access Insert/Monitor (04/26/18) Ecg Monitoring (04/26/18) Oximetry (04/26/18:) Oxygen Administration (04/26/18:) Chest, Single Ap (04/26/18:) Sodium Chloride 0.9% Flush (Ns Flush) (04/26/18 18:30) Methylprednisolone So Succ Inj (Solumedr (04/26/18 18:) Albuterol-Ipratropium Neb (Duoneb Neb) (04/26/18 18:) Sodium Chlorid 0.9% 500 Ml Inj (Ns 500 M (04/26/18 18:30) Labs Laboratory Tests Test 04/26/18 18:50 White Blood Count 12.5 TH/MM3 Red Blood Count 5.43 MIL/MM3 Hemoglobin 16.1 GM/DL Hematocrit 47.7 % Mean Corpuscular Volume 87.9 FL Mean Corpuscular Hemoglobin 29.6 PG Mean Corpuscular Hemoglobin Concent 33.6 % Red Cell Distribution Width 13.5 % Platelet Count 426 TH/MM3 Mean Platelet Volume 7.4 FL Neutrophils (%) (Auto) 64.3 % Lymphocytes (%) (Auto) 21.3 % Monocytes (%) (Auto) 7.5 % Eosinophils (%) (Auto) 6.3 % Basophils (%) (Auto) 0.6 % Neutrophils # (Auto) 8.0 TH/MM3 Lymphocytes # (Auto) 2.7 TH/MM3 Monocytes # (Auto) 0.9 TH/MM3 Eosinophils # (Auto) 0.8 TH/MM3 Basophils # (Auto) 0.1 TH/MM3 CBC Comment DIFF FINAL Differential Comment Blood Urea Nitrogen 21 MG/DL Creatinine 0.83 MG/DL Random Glucose 147 MG/DL Total Protein 7.3 GM/DL Albumin 3.5 GM/DL Calcium Level 8.6 MG/DL Magnesium Level 2.1 MG/DL Alkaline Phosphatase 69 U/L Aspartate Amino Transf (AST/SGOT) 56 U/L Alanine Aminotransferase (ALT/SGPT) 143 U/L Total Bilirubin 0.2 MG/DL Sodium Level 140 MEQ/L Potassium Level 3.7 MEQ/L Chloride Level 108 MEQ/L Carbon Dioxide Level 23.8 MEQ/L Anion Gap 8 MEQ/L Estimat Glomerular Filtration Rate 98 ML/MIN Total Creatine Kinase 99 U/L Troponin I LESS THAN 0.02 NG/ML B-Type Natriuretic Peptide 20 PG/ML MDM Medical Decision Making Medical Screen Exam Complete: Yes Emergency Medical Condition: Yes Medical Record Reviewed: Yes Interpretation(s) EKG reveals sinus tachycardia with a heart rate of 125. No ischemic changes noted. Last Impressions Chest X-Ray 04/26/181823 Signed Impressions: CONCLUSION: Diminished lung volumes without infiltrate. Laboratory Tests Test 04/26/18 18:50 White Blood Count 12.5 TH/MM3 Red Blood Count 5.43 MIL/MM3 Hemoglobin 16.1 GM/DL Hematocrit 47.7 % Mean Corpuscular Volume 87.9 FL Mean Corpuscular Hemoglobin 29.6 PG Mean Corpuscular Hemoglobin Concent 33.6 % Red Cell Distribution Width 13.5 % Platelet Count 426 TH/MM3 Mean Platelet Volume 7.4 FL Neutrophils (%) (Auto) 64.3 % Lymphocytes (%) (Auto) 21.3 % Monocytes (%) (Auto) 7.5 % Eosinophils (%) (Auto) 6.3 % Basophils (%) (Auto) 0.6 % Neutrophils # (Auto) 8.0 TH/MM3 Lymphocytes # (Auto) 2.7 TH/MM3 Monocytes # (Auto) 0.9 TH/MM3 Eosinophils # (Auto) 0.8 TH/MM3 Basophils # (Auto) 0.1 TH/MM3 CBC Comment DIFF FINAL Differential Comment Blood Urea Nitrogen 21 MG/DL Creatinine 0.83 MG/DL Random Glucose 147 MG/DL Total Protein 7.3 GM/DL Albumin 3.5 GM/DL Calcium Level 8.6 MG/DL Magnesium Level 2.1 MG/DL Alkaline Phosphatase 69 U/L Aspartate Amino Transf (AST/SGOT) 56 U/L Alanine Aminotransferase (ALT/SGPT) 143 U/L Total Bilirubin 0.2 MG/DL Sodium Level 140 MEQ/L Potassium Level 3.7 MEQ/L Chloride Level 108 MEQ/L Carbon Dioxide Level 23.8 MEQ/L Anion Gap 8 MEQ/L Estimat Glomerular Filtration Rate 98 ML/MIN Total Creatine Kinase 99 U/L Troponin I LESS THAN 0.02 NG/ML B-Type Natriuretic Peptide 20 PG/ML Differential Diagnosis Differential diagnosis includes COPD exacerbation, bronchitis, pneumonia, pneumothorax, acute coronary syndrome, congestive heart failure, pleural effusion, pulmonary edema, pulmonary embolism. Narrative Course IV was established, labs are drawn and sent, and the patient was placed on cardiac telemetry monitoring and continuous pulse oximetry monitoring. EKG was ordered and interpreted. Chest x-ray was obtained. The patient received Solu- Medrol 125 mg intravenously and duo nebs 3. BNP and troponin/CPK were sent to lab. Chest x-ray reveals diminished lung volumes, otherwise unremarkable. BNP is negative. Troponin and CPK are unremarkable. The patient was reassessed at 7:32 PM. The patient states his symptoms have significantly improved. Heart rate was down to 105. He was breathing comfortably. I did advise him to return if symptoms worsen or progress. Diagnosis Primary Impression: COPD with acute exacerbation Patient Instructions: General Instructions Additional Instructions: Medications as directed. Follow-up with your primary physician. Please provide the patient a copy of his x-ray results and lab results at discharge. Return if symptoms worsen or progress. Med/Other Pt SpecificInfo: Prescription(s) given Scripts Azithromycin (Zithromax Z-Richard) 250 Mg Dspk 250 MG PO DIRECTED for Infection, #1 DSPK 0 Refills 500 MG (2 tabs) day 1, then 1 tab days 2-5. Prov: Gerard Mccall MD 04/26/18 Albuterol Neb (Albuterol Neb) 2.5 Mg/3 Ml Neb 2.5 MG NEB Q4HR NEB Y for SHORTNESS OF BREATH, #60 NEBULE 0 Refills Prov: Gerard Mccall MD 04/26/18 Prednisone (Prednisone) 20 Mg Tab 40 MG PO DAILY, #10 TAB 0 Refills Take 40 mg (2 tablets) daily for 5 days Prov: Gerard Mccall MD 04/26/18 Disposition: 01 DISCHARGE HOME Condition: Stable Gerard Mccall MD Apr 26, 2018 18:29
[2018-04-26] MEDS ORDERED: methylPREDNISolone SOD SUCC 125 MG/2 ML VIAL IV PUSH ONE (18:30)
[2018-04-26] MEDS ORDERED: SODIUM CHLORID 0.9% 500 ML INJ 500 ML IV ONE (18:30)
[2018-04-26] MEDS ORDERED: SODIUM CHLORIDE 0.9% FLUSH 10 ML FLUSH IVF PRN (18:30)
[2018-04-26] MEDS: RESP: ALBUTEROL 2.5 MG/IPRATROPIUM 0.5 MG NEB (SCH) INH (18:33)
[2018-04-26 18:35] VITALS: O2SAT 90
--- NOTE | 2018-04-26 18:47 | RADRPT ---
EXAM DATE: 04/26/2018 6:43 PM EDT AGE/SEX: 47 years / Male INDICATIONS: Shortness of breath starting today CLINICAL DATA: This is the patient's initial encounter. Patient reports that signs and symptoms have been present for 1 day and indicates a pain score of 0/10. MEDICAL/SURGICAL HISTORY: Chronic obstructive pulmonary disease. None. COMPARISON: PO, CHEST SINGLE AP, 09/13/2017. . FINDINGS: A single AP view of the chest demonstrates diminished lung volumes without evidence of mass, infiltra te or effusion. The cardiomediastinal contours are unremarkable. Osseous structures are intact. CONCLUSION: Diminished lung volumes without infiltrate. Electronically signed by: Rico Garcia MD 04/26/2018 6:46 PM EDT
[2018-04-26 18:54] LABS: BASOPHIL # 0.1 TH/MM3 (0-0.2); BASOPHIL % 0.6 % (0.0-2.0); EOSINOPHIL # 0.8 TH/MM3 (0-0.4); EOSINOPHIL % 6.3 % (0.0-4.0); HEMATOCRIT 47.7 % (39.0-51.0); HEMOGLOBIN 16.1 GM/DL (13.0-17.0); LYMPH % 21.3 % (9.0-44.0); LYMPHOCYTE # 2.7 TH/MM3 (1.0-4.8); MEAN CELL VOLUME 87.9 FL (80.0-100.0); MEAN CORPUSCULAR HEMOGLOBIN 29.6 PG (27.0-34.0); MEAN CORPUSCULAR HGB CONC 33.6 % (32.0-36.0); MEAN PLATELET VOLUME 7.4 FL (7.0-11.0); MONO % 7.5 % (0.0-8.0); MONOCYTE # 0.9 TH/MM3 (0-0.9); NEUT % 64.3 % (16.0-70.0); PLATELET COUNT 426 TH/MM3 (150-450); RED BLOOD COUNT 5.43 MIL/MM3 (4.50-5.90); RED CELL DISTRIBUTION WIDTH 13.5 % (11.6-17.2); WHITE BLOOD COUNT 12.5 TH/MM3 (4.0-11.0)
[2018-04-26 19:02] LABS: CHLORIDE 108 MEQ/L (98-107); SODIUM (NA) 140 MEQ/L (136-145)
[2018-04-26 19:05] LABS: CALCIUM 8.6 MG/DL (8.5-10.1)
[2018-04-26 19:06] LABS: ALBUMIN 3.5 GM/DL (3.4-5.0); BICARBONATE 23.8 MEQ/L (21.0-32.0); BLOOD UREA NITROGEN 21 MG/DL (7-18); GLUCOSE,RANDOM 147 MG/DL (74-106); MAGNESIUM 2.1 MG/DL (1.5-2.5)
[2018-04-26 19:09] LABS: ALT (GPT) 143 U/L (12-78); AST (GOT) 56 U/L (15-37); CREATININE 0.83 MG/DL (0.60-1.30); GLOMERULAR FILTRATION RATE 98 ML/MIN (>89)
[2018-04-26 19:11] LABS: TOTAL BILIRUBIN ADULT 0.2 MG/DL (0.2-1.0); TOTAL PROTEIN 7.3 GM/DL (6.4-8.2)
[2018-04-26 19:12] LABS: ALKALINE PHOSPHATASE 69 U/L (45-117)
[2018-04-26 19:14] LABS: TROPONIN I LESS THAN 0.02 NG/ML (0.02-0.05)
[2018-04-26 19:31] VITALS: BP 134/73; PULSE 105; RESP 20; O2SAT 95
[2018-04-26] MEDS ORDERED: ZITHTAB PO (19:35)
[2018-04-26] MEDS ORDERED: ALBU0.08 NEB (19:35)
[2018-04-26] MEDS ORDERED: PRED20 PO (19:35)
--- NOTE | 2018-04-27 18:43 | EKG ---
Date Performed: 04/26/2018 Time Performed: 18:21:30 PTAGE: 47 years EKG: SINUS TACHYCARDIA ABNORMAL RHYTHM ECG Since the PREVIOUS TRACING , no significant change noted PREVIOUS TRACIN03/27/2018 10.50 DOCTOR: Kelly Mills Interpretating Date/Time 04/27/2018 18:42:09
== END 2018-04-26 19:48 | disposition home or self-care (01) ==
LOC: PHED 18:19
DX: J44.1 Chronic obstructive pulmonary disease with (acute) exacerbation (principal); R07.89 Other chest pain; R00.0 Tachycardia, unspecified; Z72.0 Tobacco use
CPT/HCPCS: 71045; 80053; 82550; 83735; 83880; 84484; 85025; 93005; 94640; 94664; 96361; 96374; 99285; J2930; J7040